=== PATIENT | male | born 1955 | race Caucasian/White ===

== ENCOUNTER 2017-11-02 01:09 | Emergency (ER) | payer MEDICARE ==
[2017-11-02] MEDS ORDERED: ONDANSETRON HCL 4 MG/2 ML VIAL ONE (01:52)
[2017-11-02] MEDS ORDERED: SODIUM CHLORIDE 0.9% 1000ML 1,000 ML IV ONE (01:52)
[2017-11-02] MEDS ORDERED: DICYCLOMINE HCL 20 MG TAB ONE (01:52)
[2017-11-02 02:00] LABS: BASOPHILS % (AUTO) 1.9 % (0.0-5.0); HEMATOCRIT 41.5 % (42-54); MEAN CORPUSCULAR HEMOGLOBIN 30.3 pg (27.0-33.0); MEAN CORPUSCULAR HGB CONC 33.4 g/dL (32.0-36.0); MEAN CORPUSCULAR VOLUME 90.6 fL (79-99); MONOCYTES % (AUTO) 6.1 % (3.0-13.0); NEUTROPHILS % (AUTO) 87.9 % (40.0-77.0); PLATELET COUNT (AUTO) 74 K/uL (130-400); RED BLOOD CELL COUNT(AUTO) 4.58 MIL/uL (4.50-6.20); RED CELL DISTRIBUTION WIDTH 16.1 % (11.0-15.5); WHITE BLOOD COUNT (AUTO) 7.6 K/uL (4.8-10.8)
[2017-11-02 02:10] LABS: CREATININE 1.1 mg/dL (0.5-1.5); POTASSIUM 3.6 mmol/L (3.5-5.1)
[2017-11-02 02:14] LABS: ALBUMIN 3.4 g/dL (3.5-5.0); BILIRUBIN,DIRECT 0.2 mg/dL (0.0-0.3); BILIRUBIN,TOTAL 1.2 mg/dL (0.2-1.0); TOTAL PROTEIN, SERUM 7.4 g/dL (6.0-8.3)
[2017-11-02 02:25] LABS: LYMPHOCYTES % (AUTO) 3.1 % (21.0-51.0)
[2017-11-02] MEDS ORDERED: MORPHINE SULFATE 4 MG/1ML SYG ONE (02:27)
[2017-11-02 02:39] LABS: APPEARANCE,URINE Clear (CLEAR); BILIRUBIN,URINE Negative (NEGATIVE); COLOR,URINE Dark Yellow (YELLOW); GLUCOSE, URINE (UA) Negative (NEGATIVE); KETONES,URINE Negative (NEGATIVE); LEUKOCYTE ESTERASE ,URINE Small (NEGATIVE); NITRATE,URINE Negative (NEGATIVE); OCCULT BLOOD,URINE Moderate (NEGATIVE); PROTEIN,URINE POS 1+ (NEGATIVE)
[2017-11-02 02:54] LABS: BACTERIA,URINE Few /HPF (None Seen); MUCUS,URINE Moderate LPF (None Seen); SQUAMOUS EPITHELIAL CELL,UR 0-2 /LPF (0-2)
[2017-11-02] MEDS ORDERED: KETOROLAC TROMETHAMINE 30MG/ML ONE (03:26)
== END 2017-11-02 03:41 | disposition home or self-care (01) ==
LOC: EDH 01:09
DX: K43.9 Ventral hernia without obstruction or gangrene (principal); R10.13 Epigastric pain; K65.4 Sclerosing mesenteritis; B20 Human immunodeficiency virus [HIV] disease; Z90.49 Acquired absence of other specified parts of digestive tract; Z87.891 Personal history of nicotine dependence; Z98.890 Other specified postprocedural states
CPT/HCPCS: 36415; 74176; 80048; 80076; 81001; 83605; 83690; 84484; 85025; 93005; 96361; 96374; 96375; 99285; J1885; J2270; J2405; J7030

== ENCOUNTER 2018-07-15 18:20 | Emergency (ER) | payer MEDICARE ==
[2018-07-15 19:35] LABS: BASOPHILS % (AUTO) 0.1 % (0.0-5.0); EOSINOPHILS % (AUTO) 0.6 % (0.0-8.0); HEMATOCRIT 47.3 % (42-54); LYMPHOCYTES % (AUTO) 10.4 % (21.0-51.0); MEAN CORPUSCULAR HEMOGLOBIN 31.5 pg (27.0-33.0); MEAN CORPUSCULAR HGB CONC 34.6 g/dL (32.0-36.0); MONOCYTES % (AUTO) 7.6 % (3.0-13.0); NEUTROPHILS % (AUTO) 81.3 % (40.0-77.0); PLATELET COUNT (AUTO) 84 K/uL (130-400); WHITE BLOOD COUNT (AUTO) 7.2 K/uL (4.8-10.8)
[2018-07-15 19:48] LABS: APPEARANCE,URINE Clear (CLEAR); BILIRUBIN,URINE Small (NEGATIVE); COLOR,URINE Orange (YELLOW); GLUCOSE, URINE (UA) Negative (NEGATIVE); KETONES,URINE Negative (NEGATIVE); LEUKOCYTE ESTERASE ,URINE Small (NEGATIVE); NITRATE,URINE Positive (NEGATIVE); OCCULT BLOOD,URINE Small (NEGATIVE); PROTEIN,URINE POS 1+ (NEGATIVE)
[2018-07-15 19:49] LABS: CARBON DIOXIDE 23 mmol/L (21-32); CHLORIDE 105 mmol/L (101-111); CREATININE 1.2 mg/dL (0.5-1.5); GLOMERULAR FILTR. RATE CALC 65 mL/min (>60); GLUCOSE,RANDOM 99 mg/dL (70-105); SODIUM SERUM 138 mmol/L (136-145); UREA NITROGEN, BLOOD 18 mg/dL (7-18)
[2018-07-15 19:52] LABS: INR 1.15 (0.85-1.15)
[2018-07-15] MEDS ORDERED: ACETAMINOPHEN EXTRA STRENGTH 500 MG TABLET ONE (19:54)
[2018-07-15 19:55] LABS: BACTERIA,URINE Few /HPF (None Seen); MUCUS,URINE Moderate LPF (None Seen); SQUAMOUS EPITHELIAL CELL,UR Few /HPF (0-2)
[2018-07-15 20:00] LABS: ALANINE AMINOTRANSFERASE 31 U/L (12-78); ALBUMIN 3.4 g/dL (3.5-5.0); ASPARTATE AMINOTRANSFERASE 30 U/L (10-37); BILIRUBIN,TOTAL 4.5 mg/dL (0.2-1.0); CREATINE KINASE, TOTAL 252 U/L (21-232); MYOGLOBIN 270 ng/mL (10-92); TOTAL PROTEIN, SERUM 7.9 g/dL (6.0-8.3); TROPONIN I < 0.04 ng/mL (0.00-0.06)
[2018-07-15 20:17] LABS: RAPID GROUP A STREP NEGATIVE (NEGATIVE)
[2018-07-15] MEDS ORDERED: DEXAMETHASONE SOD PHOSPHATE 10MG/ML 1ML VIAL ONE (20:51)
[2018-07-15] MEDS ORDERED: DEXAMETHASONE SOD PHOSPHATE 4 MG/ML 5ML VIAL ONE (20:52)
== END 2018-07-15 21:10 | disposition home or self-care (01) ==
LOC: EDH 18:20
DX: J06.9 Acute upper respiratory infection, unspecified (principal); E86.0 Dehydration; Z90.49 Acquired absence of other specified parts of digestive tract; Z21 Asymptomatic human immunodeficiency virus [HIV] infection status
CPT/HCPCS: 36415; 71045; 80053; 81001; 82550; 83605; 83874; 84484; 85025; 85610; 85730; 87040; 87088; 87804 ×2; 87880; 93005; 96372; 99285; J1100 ×2

== ENCOUNTER 2019-06-05 22:41 | Emergency (ER) | payer MEDICARE, OTHER ==
[2019-06-05 23:31] LABS: BILIRUBIN,URINE Small (NEGATIVE); GLUCOSE, URINE (UA) Negative (NEGATIVE); KETONES,URINE Negative (NEGATIVE); LEUKOCYTE ESTERASE ,URINE Moderate (NEGATIVE); NITRATE,URINE Positive (NEGATIVE); OCCULT BLOOD,URINE Small (NEGATIVE); PH,URINE 5.5 (5.0-8.0); PROTEIN,URINE POS 1+ mg/dL (NEGATIVE)
[2019-06-05 23:32] LABS: APPEARANCE,URINE SLIGHTLY CLOUDY (CLEAR); COLOR,URINE Orange (YELLOW)
[2019-06-05 23:37] LABS: BACTERIA,URINE Rare /HPF (None Seen); MUCUS,URINE Moderate LPF (None Seen); SQUAMOUS EPITHELIAL CELL,UR Rare /HPF (0-2)
[2019-06-05 23:39] LABS: AMPHET/METH SCREEN,URINE NEGATIVE (NEGATIVE); BARBITURATE SCREEN, URINE NEGATIVE (NEGATIVE); BENZODIAZEPINES SCREEN,URINE NEGATIVE (NEGATIVE); CANNABINOID SCREEN,URINE NEGATIVE (NEGATIVE); COCAINE SCREEN,URINE NEGATIVE (NEGATIVE); OPIATE SCREEN,URINE NEGATIVE (NEGATIVE); PHENCYCLIDINE SCREEN,URINE NEGATIVE (NEGATIVE)
[2019-06-05] MEDS ORDERED: SODIUM CHLORIDE 0.9% 1000ML 1,000 ML IV ONE (23:49)
[2019-06-05 23:50] LABS: BASOPHILS % (AUTO) 0.2 % (0.0-5.0); EOSINOPHILS % (AUTO) 1.2 % (0.0-8.0); HEMATOCRIT 43.6 % (42-54); LYMPHOCYTES % (AUTO) 14.5 % (21.0-51.0); MEAN CORPUSCULAR HEMOGLOBIN 31.8 pg (27.0-33.0); MEAN CORPUSCULAR HGB CONC 34.9 g/dL (32.0-36.0); MONOCYTES % (AUTO) 12.1 % (3.0-13.0); PLATELET COUNT (AUTO) 97 K/uL (130-400); RED BLOOD CELL COUNT(AUTO) 4.79 MIL/uL (4.50-6.20); RED CELL DISTRIBUTION WIDTH 14.8 % (11.0-15.5); WHITE BLOOD COUNT (AUTO) 7.8 K/uL (4.8-10.8)
[2019-06-06] LABS: CREATININE 1.2 mg/dL (0.5-1.5); POTASSIUM 3.1 mmol/L (3.5-5.1)
[2019-06-06 00:05] LABS: BILIRUBIN,TOTAL 4.7 mg/dL (0.2-1.0); TOTAL PROTEIN, SERUM 6.5 g/dL (6.0-8.3)
[2019-06-06] MEDS ORDERED: CEFTRIAXONE SODIUM 1 GM ONE (01:37)
[2019-06-06] MEDS ORDERED: ACETAMINOPHEN-CODEINE 300/30MG TAB ONE (01:53)
== END 2019-06-06 02:00 | disposition home or self-care (01) ==
LOC: EDH 22:41 → EEVIPCON 22:41 → EDH 06-06 02:00
DX: N10 Acute pyelonephritis (principal); R19.7 Diarrhea, unspecified
CPT/HCPCS: 36415; 74176; 80053; 80305; 81001; 83690; 84484; 85025; 87040 ×2; 87804 ×2; 93005; 96361 ×2; 96374; 99285; J0696; J7030

== ENCOUNTER 2020-07-01 10:29 | Emergency (ER) | payer MEDICARE ==
[2020-07-01 11:06] LABS: BILIRUBIN,URINE MODERATE (NEGATIVE); COLOR,URINE YELLOW (YELLOW); GLUCOSE, URINE (UA) 100 mg/dL (NEGATIVE); KETONES,URINE 5 mg/dL (NEGATIVE); LEUKOCYTE ESTERASE ,URINE MODERATE (NEGATIVE); NITRATE,URINE NEGATIVE (NEGATIVE); OCCULT BLOOD,URINE LARGE (NEGATIVE); PROTEIN,URINE 100 mg/dL (NEGATIVE)
[2020-07-01 11:18] LABS: APPEARANCE,URINE CLOUDY (CLEAR)
[2020-07-01] MEDS ORDERED: LIDOCAINE HCL-MPF 1% 2ML VIAL ONE (11:44)
[2020-07-01] MEDS ORDERED: CEFTRIAXONE SODIUM 1 GM ONE (11:45)
[2020-07-01 11:48] LABS: BACTERIA,URINE Moderate /HPF (None Seen)
== END 2020-07-01 12:00 | disposition home or self-care (01) ==
LOC: EDH 10:29
DX: N39.0 Urinary tract infection, site not specified (principal); Z21 Asymptomatic human immunodeficiency virus [HIV] infection status
CPT/HCPCS: 81001; 87088; 96372; 99283; J0696; J3490

== ENCOUNTER 2021-08-22 14:28 | Emergency (ER) | payer MEDICARE ==
[~2021-08-22] VITALS: Ht 170.2 cm; Wt 90.7 kg
[2021-08-22 15:16] LABS: BASOPHILS % (AUTO) 0.4 % (0.0-5.0); EOSINOPHILS % (AUTO) 1.3 % (0.0-8.0); HEMATOCRIT 42.2 % (42-54); LYMPHOCYTES % (AUTO) 22.6 % (21.0-51.0); MEAN CORPUSCULAR HEMOGLOBIN 33.4 pg (27.0-33.0); MEAN CORPUSCULAR HGB CONC 36.3 g/dL (32.0-36.0); MEAN CORPUSCULAR VOLUME 92.1 fL (79-99); MONOCYTES % (AUTO) 11.4 % (3.0-13.0); NEUTROPHILS % (AUTO) 63.9 % (40.0-77.0); PLATELET COUNT (AUTO) 103 K/uL (130-400); RED BLOOD CELL COUNT(AUTO) 4.58 MIL/uL (4.50-6.20); RED CELL DISTRIBUTION WIDTH 13.4 % (11.0-15.5); WHITE BLOOD COUNT (AUTO) 4.6 K/uL (4.8-10.8)
[2021-08-22 15:23] LABS: POTASSIUM 4.2 mmol/L (3.5-5.1)
[2021-08-22 15:28] LABS: ALBUMIN 3.3 g/dL (3.5-5.0); BILIRUBIN,TOTAL 2.5 mg/dL (0.2-1.0); TOTAL PROTEIN, SERUM 6.9 g/dL (6.0-8.3)
[2021-08-22 15:29] LABS: CRP QUANTITATIVE < 2.00 mg/L (0.00-9.0)
[2021-08-22] MEDS ORDERED: ALBU8.5H8 IH (15:56)
[2021-08-22 16:17] LABS: APPEARANCE,URINE Clear (CLEAR); BILIRUBIN,URINE Small (NEGATIVE); COLOR,URINE Dark Yellow (YELLOW); GLUCOSE, URINE (UA) 500 mg/dL (NEGATIVE); KETONES,URINE Trace mg/dL (NEGATIVE); LEUKOCYTE ESTERASE ,URINE Moderate (NEGATIVE); NITRATE,URINE Negative (NEGATIVE); OCCULT BLOOD,URINE Negative (NEGATIVE); PROTEIN,URINE Trace mg/dL (NEGATIVE)
[2021-08-22 16:20] VITALS: BP 145/82
[2021-08-22 16:37] LABS: BACTERIA,URINE Rare /HPF (None Seen); MUCUS,URINE Rare LPF (None Seen); RBC,URINE 0-1 /HPF (0-1); SQUAMOUS EPITHELIAL CELL,UR Few /HPF (0-2)
== END 2021-08-22 16:21 | disposition home or self-care (01) ==
LOC: EDH 14:28
DX: R06.00 Dyspnea, unspecified (principal); F41.9 Anxiety disorder, unspecified; E66.9 Obesity, unspecified; Z68.31 Body mass index [BMI] 31.0-31.9, adult
CPT/HCPCS: 36415; 71045; 80053; 81001; 83735; 83880; 84484; 85025; 85378; 86140; 87088; 93005

== ENCOUNTER 2021-09-01 21:42 | Emergency (ER) | payer MEDICARE ==
[~2021-09-01] VITALS: Ht 172.7 cm; Wt 100.2 kg
[~2021-09-01 21:42] MED LIST: ALBU8.5H8 IH
[2021-09-01 21:57] VITALS: BP 159/85
[2021-09-01 22:10] LABS: APPEARANCE,URINE Clear (CLEAR); BILIRUBIN,URINE Negative (NEGATIVE); COLOR,URINE Dark Yellow (YELLOW); GLUCOSE, URINE (UA) Negative (NEGATIVE); KETONES,URINE Negative (NEGATIVE); LEUKOCYTE ESTERASE ,URINE Moderate (NEGATIVE); NITRATE,URINE Negative (NEGATIVE); OCCULT BLOOD,URINE Negative (NEGATIVE); PROTEIN,URINE POS 1+ mg/dL (NEGATIVE)
[2021-09-01] MEDS ORDERED: LIDOCAINE HCL-MPF 1% 2ML VIAL ONE (22:14)
[2021-09-01] MEDS ORDERED: CEFTRIAXONE 1G VIAL ONE (22:14)
[2021-09-01 22:23] LABS: RBC,URINE 0-1 /HPF (0-1); WBC,URINE 26-50 /HPF (0-1)
[2021-09-01 22:24] LABS: BACTERIA,URINE Few /HPF (None Seen)
[2021-09-01] MEDS ORDERED: CEFTRIAXONE 1G VIAL IM ONE (22:30)
[2021-09-01] MEDS ORDERED: CEPH500B PO (22:38)
[2021-09-01] MEDS ORDERED: ONDA4TAB10 PO (22:38)
== END 2021-09-01 22:43 | disposition home or self-care (01) ==
LOC: EDH 21:42
DX: N39.0 Urinary tract infection, site not specified (principal); I10 Essential (primary) hypertension; E66.9 Obesity, unspecified; Z79.899 Other long term (current) drug therapy; Z68.33 Body mass index [BMI] 33.0-33.9, adult
CPT/HCPCS: 71045; 81001; 87088; 96372; 99284; J0696; J3490

== ENCOUNTER 2021-10-05 13:32 | Emergency (ER) | payer MEDICARE ==
[~2021-10-05] VITALS: Ht 167.6 cm; Wt 86.2 kg
[~2021-10-05 13:32] MED LIST changes: +CEPH500B PO; +ONDA4TAB10 PO
[2021-10-05 13:53] LABS: APPEARANCE,URINE CLOUDY (CLEAR); BILIRUBIN,URINE SMALL (NEGATIVE); COLOR,URINE YELLOW (YELLOW); GLUCOSE, URINE (UA) NEGATIVE (NEGATIVE); KETONES,URINE 5 mg/dL (NEGATIVE); LEUKOCYTE ESTERASE ,URINE SMALL (NEGATIVE); NITRATE,URINE NEGATIVE (NEGATIVE); OCCULT BLOOD,URINE SMALL (NEGATIVE); PROTEIN,URINE 30 mg/dL (NEGATIVE); UROBILINOGEN,URINE >=8.0 mg/dL (0.2-1.0)
[2021-10-05 13:54] VITALS: BP 122/56
[2021-10-05] MEDS ORDERED: 0.9%NACL 1000ML 1,000 ML IV ONE (14:00)
[2021-10-05 14:09] LABS: BACTERIA,URINE Few /HPF (None Seen); MUCUS,URINE Few LPF (None Seen); SQUAMOUS EPITHELIAL CELL,UR Few /HPF (0-2); WBC,URINE >100 /HPF (0-1)
[2021-10-05 14:19] LABS: BASOPHILS % (AUTO) 0.3 % (0.0-5.0); EOSINOPHILS % (AUTO) 2.2 % (0.0-8.0); LYMPHOCYTES % (AUTO) 18.1 % (21.0-51.0); MEAN CORPUSCULAR HGB CONC 35.2 g/dL (32.0-36.0); MEAN CORPUSCULAR VOLUME 93.8 fL (79-99); MONOCYTES % (AUTO) 18.3 % (3.0-13.0); NEUTROPHILS % (AUTO) 60.8 % (40.0-77.0); PLATELET COUNT (AUTO) 108 K/uL (130-400); RED BLOOD CELL COUNT(AUTO) 4.48 MIL/uL (4.50-6.20); RED CELL DISTRIBUTION WIDTH 13.8 % (11.0-15.5); WHITE BLOOD COUNT (AUTO) 7.3 K/uL (4.8-10.8)
[2021-10-05] MEDS ORDERED: CEFTRIAXONE 1G VIAL IVP ONE (14:30)
[2021-10-05 14:32] LABS: CREATININE 1.2 mg/dL (0.5-1.5)
[2021-10-05 14:37] LABS: ALBUMIN 3.1 g/dL (3.5-5.0); BILIRUBIN,TOTAL 2.2 mg/dL (0.2-1.0); CRP QUANTITATIVE 34.3 mg/L (0.00-9.0); TOTAL PROTEIN, SERUM 6.9 g/dL (6.0-8.3)
[2021-10-05] MEDS ORDERED: CEPH500B PO (15:06)
[2021-10-05] MEDS ORDERED: ALBU8.5H8 IH (15:06)
[2021-10-05] MEDS ORDERED: ACET-2247 PO (15:06)
[2021-10-05] MEDS ORDERED: ACETAMINOPHEN 500 MG TABLET PO ONE (15:30)
== END 2021-10-05 15:56 | disposition home or self-care (01) ==
LOC: EDH 13:32
DX: N39.0 Urinary tract infection, site not specified (principal); K76.6 Portal hypertension; K74.60 Unspecified cirrhosis of liver; I10 Essential (primary) hypertension; Z79.899 Other long term (current) drug therapy
CPT/HCPCS: 36415; 74176; 80053; 81001; 85025; 86140; 87077; 87088; 87186; 96361 ×2; 96374; 99284; J0696; J7030

== ENCOUNTER 2022-02-14 16:14 | Emergency (ER) | payer MEDICARE, OTHER ==
[~2022-02-14] VITALS: Ht 170.2 cm; Wt 90.7 kg
[~2022-02-14 16:14] MED LIST changes: +ACET-2247 PO
[2022-02-14 17:03] LABS: BASOPHILS % (AUTO) 0.2 % (0.0-5.0); EOSINOPHILS % (AUTO) 1.7 % (0.0-8.0); HEMATOCRIT 41.8 % (42-54); LYMPHOCYTES % (AUTO) 27.8 % (21.0-51.0); MEAN CORPUSCULAR HEMOGLOBIN 33.8 pg (27.0-33.0); MEAN CORPUSCULAR HGB CONC 37.1 g/dL (32.0-36.0); MEAN CORPUSCULAR VOLUME 91.1 fL (79-99); MONOCYTES % (AUTO) 11.4 % (3.0-13.0); NEUTROPHILS % (AUTO) 58.7 % (40.0-77.0); PLATELET COUNT (AUTO) 97 K/uL (130-400); RED BLOOD CELL COUNT(AUTO) 4.59 MIL/uL (4.50-6.20); RED CELL DISTRIBUTION WIDTH 13.7 % (11.0-15.5); WHITE BLOOD COUNT (AUTO) 5.9 K/uL (4.8-10.8)
[2022-02-14 17:20] LABS: CREATININE 1.1 mg/dL (0.5-1.5)
[2022-02-14 17:24] LABS: APPEARANCE,URINE CLEAR (CLEAR); BILIRUBIN,URINE NEGATIVE (NEGATIVE); COLOR,URINE YELLOW (YELLOW); GLUCOSE, URINE (UA) NEGATIVE (NEGATIVE); KETONES,URINE NEGATIVE (NEGATIVE); LEUKOCYTE ESTERASE ,URINE NEGATIVE (NEGATIVE); NITRATE,URINE NEGATIVE (NEGATIVE); OCCULT BLOOD,URINE NEGATIVE (NEGATIVE); PROTEIN,URINE TRACE mg/dL (NEGATIVE)
[2022-02-14 17:25] LABS: ALBUMIN 3.2 g/dL (3.5-5.0); BILIRUBIN,TOTAL 1.9 mg/dL (0.2-1.0); TOTAL PROTEIN, SERUM 6.8 g/dL (6.0-8.3)
[2022-02-14 17:35] LABS: BACTERIA,URINE Few /HPF (None Seen); MUCUS,URINE Few LPF (None Seen); SQUAMOUS EPITHELIAL CELL,UR Few /HPF (0-2)
[2022-02-14] MEDS ORDERED: ACETAMINOPHEN WITH CODEINE 1 TAB TAB ONE (20:05)
[2022-02-14] MEDS ORDERED: CEPHALEXIN 500 MG CAPSULE ONE (20:05)
[2022-02-14] MEDS ORDERED: ACET-2079 PO (20:09)
[2022-02-14] MEDS ORDERED: CEPH500B PO (20:09)
[2022-02-14 20:10] VITALS: BP 150/80
[2022-02-14] MEDS ORDERED: ACETAMINOPHEN WITH CODEINE 1 TAB TAB PO ONE (20:30)
[2022-02-14] MEDS ORDERED: CEPHALEXIN 500 MG CAPSULE PO ONE (20:30)
== END 2022-02-14 20:15 | disposition home or self-care (01) ==
LOC: EDH 16:14
DX: N39.0 Urinary tract infection, site not specified (principal); Z79.899 Other long term (current) drug therapy; Z90.49 Acquired absence of other specified parts of digestive tract; Z98.890 Other specified postprocedural states
CPT/HCPCS: 36415; 80053; 81001; 85025; 87088; 87804

== ENCOUNTER 2024-09-09 20:00 | Emergency (ER) | payer MEDICARE, OTHER ==
[~2024-09-09] VITALS: Ht 175.3 cm; Wt 90.7 kg
[~2024-09-09 20:00] MED LIST changes: +ACET-2079 PO; +CYAN250010 PO; +DOLU1TAB2 PO; +ONDA-243 PO; -ONDA4TAB10 PO; +TAMS-1 PO
--- NOTE | 2024-09-09 20:05 | NUR ---
UA CUP PROVIDED
--- NOTE | 2024-09-09 20:19 | ERN ---
ED Note History of Present Illness Stated Complaint: HEADACHE, UNABLE TO SLEEP Chief Complaint: Headache Time Seen by MD: 20:02 Time Seen by Midlevel: 20:02 Dictation: The patient is a 69-year-old male with a history of HIV who presents to the emergency department with complaints of frontal headache onset 2:00 p.m.. Patient denies any falls or head trauma, denies nausea or vomiting, dizziness, use of blood thinners, visual disturbances, unilateral weakness, chest pain or shortness of breath. Patient reports he has been trying to sleep but he is unable to sleep due to the headache. Did not take any ebbi-fil-inhhbrl treatment. Patient reports he has had this headache before and taking Advil with relief. Unable to recall us headache. Allergies: Coded Allergies: No Known Drug Allergies (Unverified Allergy, Unknown, 06/06/19) Home Meds Active Scripts Cephalexin Monohydrate (Keflex) 500 Mg Cap, 500 MG PO BID for 5 Days, #10 CAP Prov:CLARISA EDGAR MD 02/14/22 Acetaminophen with Codeine (Acetaminophen-Cod #3 Tablet) 1 Each Tablet, 1 EACH PO QID, #15 TAB Prov:CLARISA EDGAR MD 02/14/22 Albuterol Sulfate (Proair Hfa) 8.5 Gm Hfa.aer.ad, 2 PUFF IH QIDP, #1 INHALER Prov:CHUY LAGOS 10/05/21 Acetaminophen (Tylenol) 325 Mg Tablet, 650 MG PO Q4HPRN, #50 TAB Prov:CHUY LAGOS 10/05/21 Cephalexin Monohydrate (Keflex) 500 Mg Cap, 500 MG PO TID for 7 Days, #21 CAP Prov:CHUY LAGOS 10/05/21 Ondansetron (Ondansetron Odt) 4 Mg Tab.rapdis, 4 MG PO TID, #21 TAB Prov:CHUY LAGOS 09/01/21 Cephalexin Monohydrate (Keflex) 500 Mg Cap, 500 MG PO TID, #21 CAP Prov:CHUY LAGOS 09/01/21 Albuterol Sulfate (Proair Hfa) 8.5 Gm Hfa.aer.ad, 2 PUFF IH QIDP, #1 INHALER Prov:CHUY LAGOS 08/22/21 Reported Medications Cyanocobalamin (Vitamin B-12) (Vitamin B12) 2,500 Mcg Tablet, 100 MCG PO DAILY, TAB 09/19/22 Tamsulosin HCl (Flomax) 0.4 Mg Cap.er.24h, 0.4 MG PO DAILY, CAPSULE. 09/19/22 Dolutegravir Sodium/Lamivudine (Dovato 50-300 mg Tablet) 1 Each Tablet, 1 EACH PO DAILY, TAB 09/19/22 Past Medical History Past Medical History: Hypertension Additional Past Medical Hx: HIV, obesity Surgical History: Other Surgical History Other: RT HIP REPLACEMENT Family History: Negative Social History: Negative, Lives with family RN Note Reviewed/Agreed w/PFSH: Yes Review of System Dictation Constitutional: Negative for fever,chills, and weight loss Eyes: Negative for injury, pain,redness, and discharge ENT: Negative for injury,pain or swelling Cardiovascular: Negative for chest pain, palpitations, and edema Respiratory: Negative for shortness of breath, cough, and wheezing, Abdomen/GI: Negative for abdominal pain, nausea, vomiting, diarrhea, and constipation Back: Negative for injury and pain : Negative for injury, bleeding and discharge MS/Extremity: Negative for injury and deformity Skin: Negative for rash, and discoloration Neuro: Negative for weakness, numbness, tingling, and seizure . Positive for headache Psych: Negative for suicide ideation, homicidal ideation, and hallucinations Initial Vital Sign VS Vital Signs Date Time Temp Pulse Resp B/P (MAP) Pulse Ox O2 Delivery O2 Flow Rate FiO2 09/09/24 20:01 98.1 82 16 150/67 97 Room Air 09/09/24 20:39 0 21 Physical Exam Dictation Vital Signs reviewed General Appearance: Alert, oriented x 3, no acute distress, well developed, nourished. Head and Face: non-traumatic. Eyes: PERRL, pink conjunctivas, eyelid no trauma, anterior chamber with arcus senilis. Ears: Pinnas intact and no signs of trauma or erythema ear canals clear and no discharge TM no erythema Nose: No discharge, no bleeding. Oropharynx: Mouth normal, tongue pink. pharynx clear,no erythema, tonsils no exudates, no abscesses noted, mucous membrane moist Neck: Supple, non-tender, no thyromegaly, no masses, no JVD, no bruits Breast:Deferred Chest:No tenderness, no crepitus, no paradoxical movement, no retractions Lungs:Clear, well-ventilated, symmetric, no rales, no wheezing, no rhonchi, no stridor, good breath sounds bilaterally Heart: Regular rate, regular rhythm, no murmur, no gallops Vascular: no peripheral edema, Abdomen: Soft, positive bowel sounds, nondistended, no guarding, nontender, no rebound, no masses no hepatomegaly, no splenomegaly, no Romero's sign, no hernias. Rectal: Deferred Genital: Deferred Neurological: Normal speech, motor function intact, sensory function intact , no facial droop, no slurred speech, upper extremities equal and strength, lower extremities equal and strength Musculoskeletal: Neck nontender, full range of motion, back nontender, full range of motion, Extremities: nontender, full range of motion Skin: Color pink, dry, no turgor, no rash, no lacerations, no abrasions, no contusions. Lymphatic: Deferred Results (Laboratory/Radiology) Laboratory/Radiology Laboratory Tests Test 09/09/24 20:17 White Blood Count 5.5 K/uL (4.8-10.8) Red Blood Count 3.77 MIL/uL (4.50-6.20) L Hemoglobin 13.0 g/dL (14.0-18.0) L Hematocrit 35.1 % (42-54) L Mean Corpuscular Volume 93.1 fL (79-99) Mean Corpuscular Hemoglobin 34.5 pg (27.0-33.0) H Mean Corpuscular Hemoglobin Concent 37.0 g/dL (32.0-36.0) H Red Cell Distribution Width 13.9 % (11.0-15.5) Platelet Count 128 K/uL (130-400) L Mean Platelet Volume 10.5 fL (7.5-10.5) Immature Granulocyte % (Auto) 0.4 % (0-1) Neutrophils (%) (Auto) 50.7 % (40.0-77.0) Lymphocytes (%) (Auto) 36.6 % (21.0-51.0) Monocytes (%) (Auto) 8.6 % (3.0-13.0) Eosinophils (%) (Auto) 3.3 % (0.0-8.0) Basophils (%) (Auto) 0.4 % (0.0-5.0) Neutrophils # (Auto) 2.8 K/uL (1.8-7.7) Lymphocytes # (Auto) 2.0 K/uL (1.0-4.8) Monocytes # (Auto) 0.5 K/uL (0.1-1.0) Eosinophils # (Auto) 0.18 K/uL (0.00-0.70) Basophils # (Auto) 0.02 K/uL (0.00-0.20) Absolute Immature Granulocyte (auto 0.02 K/uL (0-1) Nucleated Red Blood Cells 0.0 % (0.0-0.19) Red Blood Cell Morphology See comments Sodium Level 145 mmol/L (136-145) Potassium Level 4.1 mmol/L (3.5-5.1) Chloride Level 112 mmol/L (101-111) H Carbon Dioxide Level 27 mmol/L (21-32) Blood Urea Nitrogen 24 mg/dL (7-18) H Creatinine 1.2 mg/dL (0.5-1.3) Glomerular Filtration Rate Calc 65 mL/min (>90) Random Glucose 143 mg/dL (70-105) H Total Calcium 9.3 mg/dL (8.5-10.1) Magnesium Level 1.90 mg/dL (1.80-2.40) REASON: headache ORDERING PHYSICIAN: NICHOLAS VAUGHAN PROCEDURE: HEAD WO - CT HEAD/BRAIN W/O CONTRAST CT HEAD/BRAIN W/O CONTRAST CLINICAL HISTORY: headache COMPARISON: None TECHNIQUE: Multiple sequential axial images of the head were obtained from the base of the skull through vertex. CT was performed with one or more of the following dose reduction techniques: automated exposure control, adjustment of the mA and/or kV according to patient size, or use of iterative reconstruction technique FINDINGS: There is moderate atrophy and small vessel disease. The orbital contents, paranasal sinuses and mastoid air cells are within normal limits. The calvarium is intact. IMPRESSION: There are no acute findings. Labs Reviewed?: Yes ED Course ED Course Orders Procedure Category Date Status Time Cbc With Differential LAB 09/09/24 Complete 20:08 Basic Metabolic Panel LAB 09/09/24 Complete 20:08 Magnesium LAB 09/09/24 Complete 20:08 Urinalysis Profile LAB 09/09/24 Logged 20:08 Ct Head/Brain W/O CT 09/09/24 Resulted Contrast 20:11 Acetaminophen 500mg PHA 09/09/24 Complete Tab (Tylenol 500mg T 20:30 0.9%Nacl 1000ml (Ns PHA 09/09/24 In Process 1000ml) 20:30 Metoclopramide 10 PHA 09/09/24 Complete Mg/2 Ml Vial (Reglan 1 20:30 Diphenhydramine Hcl PHA 09/09/24 Complete (Benadryl Inj) 20:30 Current Medications Medications (Trade) Dose Ordered Sig/Roxana Route PRN Reason Start Time Stop Time Status Last Admin Dose Admin Acetaminophen (TYLenol 500MG TAB) 1,000 mg ONCE ONCE PO 09/09/24 20:30 09/09/24 20:31 DC 09/09/24 20:32 Diphenhydramine HCl (BENAdryl INJ) 12.5 mg ONCE ONCE IV 09/09/24 20:30 09/09/24 20:31 DC 09/09/24 20:32 Metoclopramide HCl (regLAN 10MG IV) 10 mg ONCE ONCE IM 09/09/24 20:30 09/09/24 20:31 DC 09/09/24 20:32 Sodium Chloride 1,000 ml @ 125 mls/hr ONCE ONCE IV 09/09/24 20:30 09/10/24 04:29 09/09/24 20:32 Vital Signs Date Time Temp Pulse Resp B/P (MAP) Pulse Ox O2 Delivery O2 Flow Rate FiO2 09/09/24 20:39 98.4 86 18 171/99 98 Room Air* 0 21 09/09/24 20:01 98.1 82 16 150/67 97 Room Air Medical Decision Making MDM The patient is a 69-year-old male with a history of HIV who presents to the emergency department with complaints of frontal headache onset 2:00 p.m.. Patient denies any falls or head trauma, denies nausea or vomiting, dizziness, use of blood thinners, visual disturbances, unilateral weakness, chest pain or shortness of breath. Patient reports he has been trying to sleep but he is unable to sleep due to the headache. Did not take any qtti-jys-masfzve treatment. Patient reports he has had this headache before and taking Advil with relief. Unable to recall last headache. CBC showed no leukocytosis, normocytic anemia, chemistry showed chloride of 112, glucose 143, BUN 24, creatinine 1.2, GFR 65. CT revealed no acute pathology. Patient continues neurologically intact. On reassessment patient reports no longer having any headache. Patient will be discharged to follow up with PCP. Differential diagnosis: Dehydration, tension headache, subarachnoid hemorrhage, electrolyte imbalance Need for hospitalization: Patient does not meet criteria for hospitalization. There are no social concerns with this patient. DX & DISP Disposition: Discharge Departure Impression: Primary Impression: Headache Condition: Stable Additional Instructions: Please follow up with primary doctor in 1-2 days. If symptoms worsen please return to ER. FOLLOW-UP WITH PRIMARY CARE PROVIDER IN 1 TO 2 DAYS. TAKE MEDICATIONS DIRECTED HERE IN THE EMERGENCY ROOM. OKAY TO CONTINUE HOME MEDICATIONS UNLESS OTHERWISE DISCUSSED DURING YOUR VISIT IN THE EMERGENCY ROOM TODAY. RETURN TO YOUR NEAREST EMERGENCY ROOM IF SYMPTOMS WORSEN OR IF THERE IS NO IMPROVEMENT. CALL 911 IF YOU NEED IMMEDIATE ASSISTANCE. TAKE TYLENOL OR MOTRIN [id number] NEEDED AND IF NO CONTRAINDICATIONS ARE PRESENT. INCREASE ORAL HYDRATION. A WOUND CULTURE OR URINE CULTURE WAS ORDERED HERE IN THE EMERGENCY ROOM DEPARTMENT PLEASE FOLLOW-UP WITH PRIMARY CARE PROVIDER AND ADVISE THEM TO GET REPEAT PORTS FROM OUR FACILITY. IF YOU HAD ANY ODALYS WRAP/SPLINTS THAT WERE APPLIED HERE, PLEASE DO NOT REMOVE THEM UNTIL YOU SEE YOUR PRIMARY CARE OR SPECIALTY. Referrals: SELF,REFERRAL (PCP) Time of Disposition: 21:51 I have reviewed the case, and I agree with, Diagnosis and Plan NICHOLAS VAUGHAN [facility] Sep 09, 2024 20:19
[2024-09-09 20:27] LABS: BASOPHILS # (AUTO) 0.02 K/uL (0.00-0.20); BASOPHILS % (AUTO) 0.4 % (0.0-5.0); EOSINOPHILS # (AUTO) 0.18 K/uL (0.00-0.70); EOSINOPHILS % (AUTO) 3.3 % (0.0-8.0); HEMATOCRIT 35.1 % (42-54); IMMATURE GRANULOCYTE ABSOLUTE 0.02 K/uL (0-1); LYMPHOCYTES % (AUTO) 36.6 % (21.0-51.0); MEAN CORPUSCULAR HEMOGLOBIN 34.5 pg (27.0-33.0); MEAN CORPUSCULAR VOLUME 93.1 fL (79-99); MONOCYTES # (AUTO) 0.5 K/uL (0.1-1.0); MONOCYTES % (AUTO) 8.6 % (3.0-13.0); NEUTROPHILS # (AUTO) 2.8 K/uL (1.8-7.7); NEUTROPHILS % (AUTO) 50.7 % (40.0-77.0); PLATELET COUNT (AUTO) 128 K/uL (130-400); RED BLOOD CELL COUNT(AUTO) 3.77 MIL/uL (4.50-6.20); RED CELL DISTRIBUTION WIDTH 13.9 % (11.0-15.5); WHITE BLOOD COUNT (AUTO) 5.5 K/uL (4.8-10.8)
[2024-09-09] MEDS: acetaMINOPHEN 500 MG TABLET PO ONE (20:32)
[2024-09-09] MEDS: DiphenhydrAMINE HCL 50 MG/ML VIAL IV ONE (20:32)
[2024-09-09] MEDS: 0.9%NACL 1000ML 1,000 ML IV ONE (20:32)
[2024-09-09] MEDS: metoCLOPRAmide 10 MG/2 ML VIAL IM ONE (20:32)
[2024-09-09 20:59] LABS: CREATININE 1.2 mg/dL (0.5-1.3); MAGNESIUM 1.9 mg/dL (1.80-2.40); POTASSIUM 4.1 mmol/L (3.5-5.1)
--- NOTE | 2024-09-09 21:20 | HMCIMG ---
CT HEAD/BRAIN W/O CONTRAST CLINICAL HISTORY: headache COMPARISON: None TECHNIQUE: Multiple sequential axial images of the head were obtained from the base of the skull through vertex. CT was performed with one or more of the following dose reduction techniques: automated exposure control, adjustment of the mA and/or kV according to patient size, or use of iterative reconstruction technique FINDINGS: There is moderate atrophy and small vessel disease. The orbital contents, paranasal sinuses and mastoid air cells are within normal limits. The calvarium is intact. IMPRESSION: There are no acute findings.
[2024-09-09 21:57] VITALS: BP 156/86; PULSE 81; RESP 20; TEMP 98.1; O2SAT 99
== END 2024-09-09 21:58 | disposition home or self-care (01) ==
LOC: EDH 20:00
DX: R51.9 Headache, unspecified (principal); I10 Essential (primary) hypertension; E66.9 Obesity, unspecified; Z79.624 Long term (current) use of inhibitors of nucleotide synthesis; Z96.641 Presence of right artificial hip joint; Z68.29 Body mass index [BMI] 29.0-29.9, adult
CPT/HCPCS: 99285; 96374; 70450; 96361; 83735; 80048; 85025; 36415; 96372; J1200; J7030; J2765

== ENCOUNTER 2025-02-18 05:38 | Emergency (ER) | payer MEDICARE, OTHER ==
[~2025-02-18] VITALS: Ht 170.2 cm; Wt 90.7 kg
[~2025-02-18 05:38] MED LIST changes: -TAMS-1 PO; +TAMS-55 PO
--- NOTE | 2025-02-18 05:54 | ERN ---
ED Note History of Present Illness Stated Complaint: DONT FEEL GOOD Chief Complaint: Other Problems Time Seen by MD: 07:42 Dictation: Allergies: Coded Allergies: No Known Drug Allergies (Unverified Allergy, Unknown, 06/06/19) Home Meds Active Scripts Cephalexin Monohydrate (Keflex) 500 Mg Cap, 500 MG PO BID for 5 Days, #10 CAP Prov:CLARISA EDGAR MD 02/14/22 Acetaminophen with Codeine (Acetaminophen-Cod #3 Tablet) 1 Each Tablet, 1 EACH PO QID, #15 TAB Prov:CLARISA EDGAR MD 02/14/22 Albuterol Sulfate (Proair Hfa) 8.5 Gm Hfa.aer.ad, 2 PUFF IH QIDP, #1 INHALER Prov:CHUY LAGOS 10/05/21 Acetaminophen (Tylenol) 325 Mg Tablet, 650 MG PO Q4HPRN, #50 TAB Prov:CHUY LAGOS 10/05/21 Cephalexin Monohydrate (Keflex) 500 Mg Cap, 500 MG PO TID for 7 Days, #21 CAP Prov:CHUY LAGOS 10/05/21 Ondansetron (Ondansetron Odt) 4 Mg Tab.rapdis, 4 MG PO TID, #21 TAB Prov:CHUY LAGOS 09/01/21 Cephalexin Monohydrate (Keflex) 500 Mg Cap, 500 MG PO TID, #21 CAP Prov:CHUY LAGOS 09/01/21 Albuterol Sulfate (Proair Hfa) 8.5 Gm Hfa.aer.ad, 2 PUFF IH QIDP, #1 INHALER Prov:CHUY LAGOS 08/22/21 Reported Medications Cyanocobalamin (Vitamin B-12) (Vitamin B12) 2,500 Mcg Tablet, 100 MCG PO DAILY, TAB 09/19/22 Tamsulosin HCl (Flomax) 0.4 Mg Cap.er.24h, 0.4 MG PO DAILY, CAPSULE.DR 09/19/22 Dolutegravir Sodium/Lamivudine (Dovato 50-300 mg Tablet) 1 Each Tablet, 1 EACH PO DAILY, TAB 09/19/22 Past Medical History Dictation 69-year-old male presents for generalized abdominal discomfort and nausea over the last few days. Patient reports for last two or three days she has had decreased oral intake and nausea. He was developed some generalized abdominal discomfort. He also has a headache. Unknown if he has a fever per the patient. No actual vomiting. No diarrhea. Reports that he was feeling unwell last night and was able to sleep which is why came to the ER. Past Medical History: Hypertension Additional Past Medical Hx: HIV, obesity, portal venous hypertension, cirrhosis Surgical History: Other Surgical History Other: RT HIP REPLACEMENT Family History: Negative Social History: Negative, Lives with family RN Note Reviewed/Agreed w/PFSH: Yes Review of System Dictation Constitutional: Negative for fever,chills, and weight loss Eyes: Negative for injury, pain,redness, and discharge ENT: Negative for injury,pain or swelling Cardiovascular: Negative for chest pain, palpitations, and edema Respiratory: Negative for shortness of breath, cough, and wheezing, Abdomen/GI: Negative for abdominal pain, nausea, vomiting, diarrhea, and constipation Back: Negative for injury and pain : Negative for injury, bleeding and discharge MS/Extremity: Negative for injury and deformity Skin: Negative for rash, and discoloration Neuro: Negative for headache, weakness, numbness, tingling, and seizure Psych: Negative for suicide ideation, homicidal ideation, and hallucinations Initial Vital Sign VS Vital Signs Date Time Temp Pulse Resp B/P (MAP) Pulse Ox O2 Delivery O2 Flow Rate FiO2 02/18/25 05:39 96.6 89 20 106/79 99 Room Air 02/18/25 07:32 0 21 Physical Exam Dictation General: awake, alert, NAD Head/Face: Normocephalic, atraumatic Eyes: PERRL, EOMI, vision at baseline ENT: oral cavity clear, TMs clear, no signs of infection Neck: Trachea midline, supple, no nuchal rigidity Cardiovascular: RRR, normal S1/S2, No MRGs, no JVD Respiratory: CTAB, no respiratory distress, No rales or wheezes Abdomen: Soft, non-tender, non-distended, normal bowel sounds, no guarding or rebound. Skin: Warm, dry, normal turgor, no rash MS/Extremity: Pulses equal, no cyanosis, neurovascular intact, FROM Neuro: COAx4, GCS 15, strength 5/5, CN 2-12 intact, normal cerebellar exam, normal gait, Psych: Normal behavior, mood, and affect normal Extremities-trace edema without any palpable cords, Homans sign is negative Results (Laboratory/Radiology) Laboratory/Radiology Laboratory Tests Test 02/18/25 06:23 02/18/25 08:06 02/18/25 08:10 White Blood Count 5.8 K/uL (4.8-10.8) Red Blood Count 4.18 MIL/uL (4.50-6.20) L Hemoglobin 14.0 g/dL (14.0-18.0) Hematocrit 37.8 % (42-54) L Mean Corpuscular Volume 90.4 fL (79-99) Mean Corpuscular Hemoglobin 33.5 pg (27.0-33.0) H Mean Corpuscular Hemoglobin Concent 37.0 g/dL (32.0-36.0) H Red Cell Distribution Width 14.0 % (11.0-15.5) Platelet Count 110 K/uL (130-400) L Mean Platelet Volume 10.4 fL (7.5-10.5) Immature Granulocyte % (Auto) 0.5 % (0-1) Neutrophils (%) (Auto) 62.4 % (40.0-77.0) Lymphocytes (%) (Auto) 28.5 % (21.0-51.0) Monocytes (%) (Auto) 6.7 % (3.0-13.0) Eosinophils (%) (Auto) 1.7 % (0.0-8.0) Basophils (%) (Auto) 0.2 % (0.0-5.0) Neutrophils # (Auto) 3.6 K/uL (1.8-7.7) Lymphocytes # (Auto) 1.7 K/uL (1.0-4.8) Monocytes # (Auto) 0.4 K/uL (0.1-1.0) Eosinophils # (Auto) 0.10 K/uL (0.00-0.70) Basophils # (Auto) 0.01 K/uL (0.00-0.20) Absolute Immature Granulocyte (auto 0.03 K/uL (0-1) Nucleated Red Blood Cells 0.0 % (0.0-0.19) Red Blood Cell Morphology See comments Sodium Level 140 mmol/L (136-145) Potassium Level 4.0 mmol/L (3.5-5.1) Chloride Level 108 mmol/L (101-111) Carbon Dioxide Level 23 mmol/L (21-32) Blood Urea Nitrogen 23 mg/dL (7-18) H Creatinine 1.1 mg/dL (0.5-1.3) Glomerular Filtration Rate Calc 72 mL/min (>90) Random Glucose 111 mg/dL (70-105) H Total Calcium 8.6 mg/dL (8.5-10.1) Total Bilirubin 1.4 mg/dL (0.2-1.0) H Direct Bilirubin 0.3 mg/dL (0.0-0.3) Aspartate Amino Transf (AST/SGOT) 33 U/L (10-37) Alanine Aminotransferase (ALT/SGPT) 31 U/L (12-78) Alkaline Phosphatase 67 U/L (50-136) Ammonia umol/L (11-32) Total Creatine Kinase 152 U/L (21-232) # Troponin I High Sensitivity 12 ng/L (4-75) Total Protein 6.6 g/dL (6.0-8.3) Albumin 3.2 g/dL (3.5-5.0) L Lipase 53 U/L (16-77) Serum Alcohol < 3 mg/dL (0-10) Urine Color DARK-YELLOW (YELLOW) Urine Appearance CLOUDY (CLEAR) H Urine pH 6.5 (5.0-8.0) Urine Specific [place] 1.030 (1.001-1.031) Urine Protein 30 mg/dL (NEGATIVE) H Urine Glucose (UA) NEGATIVE mg/dL (NEGATIVE) Urine Ketones 5 mg/dL (NEGATIVE) H Urine Occult Blood NEGATIVE (NEGATIVE) Urine Nitrate NEGATIVE (NEGATIVE) Urine Bilirubin NEGATIVE mg/dL (NEGATIVE) Urine Urobilinogen >=8.0 mg/dL (0.2-1.0) H Urine Leukocyte Esterase 250 [place]ham/uL (NEGATIVE) H Urine RBC 11-25 /HPF (0-1) H Urine WBC 26-50 /HPF (0-1) H Urine Squamous Epithelial Cells RARE /HPF (0-2) Urine Bacteria None /HPF (None Seen) Influenza Type A Antigen Negative For Type A Influenza Type B Antigen Negative For Type B SARS-CoV-2 Antigen (Rapid) PRESUMPTIVE NEGATIVE Labs Reviewed?: Yes ED Course ED Course Orders Procedure Category Date Status Time Alcohol, Blood LAB 02/18/25 Complete 06:08 Ammonia LAB 02/18/25 Complete 06:08 Cbc With Differential LAB 02/18/25 Complete 06:08 Urinalysis Profile LAB 02/18/25 Complete 06:08 Comprehensive LAB 02/18/25 Complete Metabolic Panel 06:08 Creatine Kinase, Total LAB 02/18/25 Complete 06:08 Chest 1vw RAD 02/18/25 Resulted 06:08 Cortisol Am LAB 02/18/25 In Process 06:08 Lactated Ringers PHA 02/18/25 Complete 1000ml (Lactated 07:30 Lipase LAB 02/18/25 Complete 07:32 Hepatic Function Panel LAB 02/18/25 Complete 07:32 Troponin I High LAB 02/18/25 Complete Sensitivity 07:32 12 Lead Ekg Tracing- EKG 02/18/25 Logged Technical 07:32 Ct Abdomen/Pelvis CT 02/18/25 Resulted W/Contrast 07:41 Morphine 4mg Syg PHA 02/18/25 Complete (Morphine 4mg Syg) 08:00 Covid19 (Sars Antigen LAB 02/18/25 Complete Rapid) 07:41 Influenza Type A & B, LAB 02/18/25 Complete Rapid 07:41 Ondansetron 4mg Inj PHA 02/18/25 Complete (Zofran 4mg Inj) 08:00 Iohexol (Omnipaque) PHA 02/18/25 Complete 07:57 Culture Urine GLORIA 02/18/25 Logged 08:59 Lactulose 20 Gm/30 Ml PHA 02/18/25 In Process Udcup (Constulose 09:30 Lactulose 20 Gm/30 Ml PHA 02/18/25 Complete Udcup (Constulose 09:18 Current Medications Medications (Trade) Dose Ordered Sig/Roxana Route PRN Reason Start Time Stop Time Status Last Admin Dose Admin Iohexol (Omnipaque) 75 ml STK-MED ONCE IV 02/18/25 07:57 02/18/25 07:57 DC Lactated Ringer's 1,000 ml @ 0 mls/hr ONCE ONCE IV 02/18/25 07:30 02/18/25 07:31 DC 02/18/25 07:27 Lactulose (Constulose 20gm/ 30ml Udcup) 20 gm ONCE ONCE PO 02/18/25 09:30 02/18/25 09:31 02/18/25 09:23 Lactulose (Constulose 20gm/ 30ml Udcup) 20 gm STK-MED ONCE .ROUTE 02/18/25 09:18 02/18/25 09:19 DC Morphine Sulfate (morPHINE 4MG SYG) 4 mg ONCE ONCE IVP 02/18/25 08:00 02/18/25 08:01 DC 02/18/25 08:39 Ondansetron HCl (zoFRAN 4MG INJ) 4 mg ONCE ONCE IVP 02/18/25 08:00 02/18/25 08:01 DC 02/18/25 08:39 Vital Signs Date Time Temp Pulse Resp B/P (MAP) Pulse Ox O2 Delivery O2 Flow Rate FiO2 02/18/25 07:32 98.1 64 14 165/83 100 Room Air* 0 21 02/18/25 05:39 96.6 89 20 106/79 99 Room Air We will perform diagnostic labs, advanced imaging and administer medications according to the patient's complaint. Once the results are available, will review and personally interpreted the labs to rule out any acute life- threatening emergency the trach require immediate intervention and treatment. I will then re-evaluate the patient after treatment and diagnostic exams have return to determine whether the patient requires any further testing, can safely be discharged home or need further admission to hospital for additional treatment and evaluation. Medical Decision Making MDM DR IRIZARRY. I took over care of this patient at 0700. CC: Nausea, generally feeling unwell, generalized abdominal discomfort, difficulty sleeping historian: Patient comorbidities: HIV, obesity, on a diuretic for another reason, possible history of liver disease but patient was unsure Limitations by social determinants of health: None Differential diagnosis: Surgical pathology of the abdomen, metabolic disorder, liver disorder, infection, other. Vital signs: Stable, remained stable here in the ER labs (independently ordered and interpreted by me ): No leukocytosis the white blood cell count 5.8 K 62% neutrophils no bands. No neutropenia. No anemia. Platelets mildly low 110. Chemistry panel shows stable electrolytes mildly elevated BUN to creatinine ratio consistent with dehydration. T bili is mildly elevated 1.4 the rest of the liver enzymes are stable. CK normal. Troponin normal. Albumin mildly low. Lipase normal. Ammonia elevated 140. Alcohol level normal. Flu SARS negative. Urinalysis does show some leuk esterase urobilinogen. CXR: Possible left perihilar infiltrate, the patient was lung sounds are clear this does not fit the clinical picture, I suspect it is probably atelectasis based on the patient's positioning and abdominal anatomy. CT abdomen and pelvis with contrast (independently interpreted by me): No obvious surgical pathology or free air. Per radiology read there is a small liver splenomegaly splenorenal shunt without ascites. Patient appears to have chronic liver disease. Treatment in ED: Zofran, 4 mg IV morphine, 1 L lactated Ringer's. 20 mg oral lactulose. Plan: I recommended that the patient be admitted for the elevated ammonia. He was having sleep disturbances nausea, I am concerned that he may have elevated ammonia levels. I also report that he likely has liver disease based on the clinical picture. The patient reports he thinks this is chronic but he was unsure. He reports some it was not want to stay in the hospital. He was GCS of 15. I repeated it multiple times so we get offer the hospital including a GI consultation and make sure the ammonia clears and that his symptoms improved, the patient reports that he understands this, but he was not want to be in the hospital he wants to go home. I did suggest that I will discharge the patient with lactulose that he should take t.i.d. for the next few days and increase his oral intake, and the patient will need close follow up as an outpatient. He reports that he was sees Dr. Mckeon as an outpatient and he can go with the next few days to his office because he was usually able to see him very often. The patient goes to his primary doctor at least once or twice per month he says. This seems like a reasonable follow up. He lives with somebody at home. He was not altered at all at this time and he was able to answer all questions and he was ambulatory without any symptoms. We will DC with lactulose recommend very close PCP follow up. I told the patient multiple times to immediately return to the emergency department if he has any concerns. DX & DISP Disposition: Discharge Departure Impression: Primary Impression: Hyperammonemia Additional Impressions: Liver disease, Dehydration, UTI (urinary tract infection), Bacteria in urine, Elevated bilirubin, Thrombocytosis Condition: Stable Scripts Lactulose (Lactulose) 10 Gram/15 Ml Solution 30 ML PO TID PRN for tid for 5 Days, #500 ML 0 Refills Prov: NIURKA IRIZARRY DO 02/18/25 Cephalexin (Cephalexin) 500 Mg Capsule 1 CAP PO BID for 5 Days, #10 CAP 0 Refills Prov: NIURKA IRIZARRY DO 02/18/25 Additional Instructions: Your symptoms are consistent with elevated ammonia levels, which is likely due to liver disease. Your vital signs have been stable here in the ER. The CT scan of your abdomen and pelvis shows signs of liver disease but there are no acute abnormalities. Your lab work (CBC, BMP, liver function test, urinalysis, lipase, CK, albumin, ammonia) shows signs of liver disease and there may be some mild urinary infection. There was also some dehydration. The ammonia is elevated, which may be causing your symptoms. Otherwise there are no life-threatening changes. You received IV fluids, pain control, and a dose of lactulose here in the ER. As we discussed, I have prescribed lactulose. This medication will make you stool, and we will help clear the ammonia. I recommend that you take this at least 3 times per day for the next 3-5 days. As we discussed, you need to follow up with Dr. Mckeon this week for re-evaluation. I have also prescribed antibiotics. Take as prescribed. You can take over the counter ibuprofen (800mg) as needed for pain. As we discussed, many people with the your condition are admitted to the hospital to ensure resolution. Please immediately return to the emergency department if you have any concerning symptoms. Referrals: CROW LAMBERT DO (PCP) RADHA SALMON MD Feb 18, 2025 05:54 NIURKA IRIZARRY DO Feb 18, 2025 07:44
[2025-02-18 06:45] LABS: BASOPHILS # (AUTO) 0.01 K/uL (0.00-0.20); BASOPHILS % (AUTO) 0.2 % (0.0-5.0); EOSINOPHILS % (AUTO) 1.7 % (0.0-8.0); HEMATOCRIT 37.8 % (42-54); IMMATURE GRANULOCYTE ABSOLUTE 0.03 K/uL (0-1); LYMPHOCYTES # (AUTO) 1.7 K/uL (1.0-4.8); LYMPHOCYTES % (AUTO) 28.5 % (21.0-51.0); MEAN CORPUSCULAR HEMOGLOBIN 33.5 pg (27.0-33.0); MEAN CORPUSCULAR VOLUME 90.4 fL (79-99); MONOCYTES # (AUTO) 0.4 K/uL (0.1-1.0); MONOCYTES % (AUTO) 6.7 % (3.0-13.0); NEUTROPHILS # (AUTO) 3.6 K/uL (1.8-7.7); NEUTROPHILS % (AUTO) 62.4 % (40.0-77.0); PLATELET COUNT (AUTO) 110 K/uL (130-400); RED BLOOD CELL COUNT(AUTO) 4.18 MIL/uL (4.50-6.20); WHITE BLOOD COUNT (AUTO) 5.8 K/uL (4.8-10.8)
[2025-02-18 06:53] LABS: CARBON DIOXIDE 23 mmol/L (21-32); CHLORIDE 108 mmol/L (101-111); CREATININE 1.1 mg/dL (0.5-1.3); GLOMERULAR FILTR. RATE CALC 72 mL/min (>90); GLUCOSE,RANDOM 111 mg/dL (70-105); SODIUM SERUM 140 mmol/L (136-145); UREA NITROGEN, BLOOD 23 mg/dL (7-18)
[2025-02-18 06:56] LABS: ALANINE AMINOTRANSFERASE 30 U/L (12-78); ALBUMIN 3.2 g/dL (3.5-5.0); ASPARTATE AMINOTRANSFERASE 31 U/L (10-37); BILIRUBIN,TOTAL 1.3 mg/dL (0.2-1.0); CREATINE KINASE, TOTAL 152 U/L (21-232); TOTAL PROTEIN, SERUM 6.5 g/dL (6.0-8.3)
[2025-02-18 06:59] LABS: ALCOHOL, BLOOD < 3 mg/dL (0-10)
[2025-02-18] MEDS: LACTATED RINGERS 1000ML 1,000 ML IV ONE (07:27)
--- NOTE | 2025-02-18 07:35 | NUR ---
PATIENT MADE AWARE OF URINE ORDER SAMPLE
[2025-02-18] MEDS ORDERED: IOHEXOL-350 75 ML VIAL IV ONE (07:57)
--- NOTE | 2025-02-18 08:05 | NUR ---
PENDING CONSENT FOR CT EXAM.
--- NOTE | 2025-02-18 08:14 | HMCIMG ---
PORTABLE CHEST RADIOGRAPH INDICATION: generalized weakness COMPARISON: 09/20/2022 FINDINGS: Heart size is normal. The pulmonary vascularity and right hilum appear normal. Linear left perihilar/infrahilar opacities. Left hemidiaphragm is slightly elevated. No significant pleural effusion noted. No pneumothorax detected. IMPRESSION: Left perihilar/infrahilar atelectasis favored over evolving pneumonia. Follow-up chest radiograph is advised in order to ensure resolution.
[2025-02-18 08:31] LABS: COVID19 (SARS ANTIGEN RAPID) PRESUMPTIVE NEGATIVE (NEGATIVE); INFLUENZA TYPE A Negative For Type A (NEGATIVE); INFLUENZA TYPE B Negative For Type B (NEGATIVE)
[2025-02-18 08:33] LABS: ALBUMIN 3.2 g/dL (3.5-5.0); BILIRUBIN,DIRECT 0.3 mg/dL (0.0-0.3); BILIRUBIN,TOTAL 1.4 mg/dL (0.2-1.0); TOTAL PROTEIN, SERUM 6.6 g/dL (6.0-8.3)
[2025-02-18] MEDS: morPHINE 4 MG SYG IVP ONE (08:39)
[2025-02-18] MEDS: ondanSETRON 4MG INJ IVP ONE (08:39)
[2025-02-18 08:47] LABS: APPEARANCE,URINE CLOUDY (CLEAR); BILIRUBIN,URINE NEGATIVE (NEGATIVE); COLOR,URINE DARK-YELLOW (YELLOW); GLUCOSE, URINE (UA) NEGATIVE (NEGATIVE); KETONES,URINE 5 mg/dL (NEGATIVE); LEUKOCYTE ESTERASE ,URINE 250 Leu/uL (NEGATIVE); NITRATE,URINE NEGATIVE (NEGATIVE); OCCULT BLOOD,URINE NEGATIVE (NEGATIVE); PH,URINE 6.5 (5.0-8.0); PROTEIN,URINE 30 mg/dL (NEGATIVE); UROBILINOGEN,URINE >=8.0 mg/dL (0.2-1.0)
--- NOTE | 2025-02-18 08:50 | HMCIMG ---
CT ABDOMEN WITH CONTRAST. CT PELVIS WITH CONTRAST INDICATION: Abdominal pain and nausea TECHNIQUE: Routine transaxial images using 5 mm slice thickness were obtained after the intravenous infusion of 75 mL of Omnipaque 350 without adverse effects. Oral contrast was not administered. Rectal contrast was not administered. Coronal and sagittal reformatted images acquired for interpretation. CT was performed with one or more of the following dose reduction techniques: Automated exposure control, adjustment of the mA and/or kV according to patient size, or use of iterative reconstruction technique. COMPARISON: 09/17/2022 FINDINGS: ABDOMEN: Heart size is normal. Multiple simple cysts scattered throughout both lungs. Mild distal esophageal wall thickening. The liver is decreased in size and smooth in contour without lesions or biliary duct dilation. Diminutive portal venous system. The spleen is enlarged without lesions. Splenorenal shunt. The gallbladder is absent. The pancreas appears normal without pancreatic duct dilation. The adrenal glands appear normal. Both kidneys appear unremarkable. Cortical nephrograms are symmetric and normal in appearance bilaterally. No evidence for intra-abdominal free air or organized fluid collection. No retrocrural, intraabdominal, or retroperitoneal lymphadenopathy identified. No aortic aneurysmal dilation or dissection identified. PELVIS: Extensive streak artifact from right hip hardware. No evidence for free air or organized pelvic fluid collection. No significant pelvic adenopathy detected. Moderate stool burden. Terminal ileum appears normal. The appendix is not well-visualized. The urinary bladder appears unremarkable. Mild thoracolumbar spondylosis. 1 cm Schmorl's node prolapsing into the superior endplate of T11. IMPRESSION: Mild distal esophagitis. Small liver, diminutive portal venous system, splenomegaly, and splenorenal shunt, without ascites or gastroesophageal varices. Small simple cysts scattered throughout both lungs may represent residual from prior infection, inflammation, or other insult.
[2025-02-18 08:59] LABS: ADD UA MICROSCOPIC YES
[2025-02-18 09:03] LABS: MUCUS,URINE MANY LPF (None Seen); SQUAMOUS EPITHELIAL CELL,UR RARE /HPF (0-2); WBC,URINE 26-50 /HPF (0-1)
[2025-02-18] MEDS: LACTULOSE 20 GM/30 ML UDCUP ONE (09:23)
[2025-02-18] MEDS: LACTULOSE 20 GM/30 ML UDCUP PO ONE (09:23)
[2025-02-18] MEDS ORDERED: LACT10SO85 PO (09:27)
[2025-02-18] MEDS ORDERED: CEPH500C2 PO (09:27)
[2025-02-18 09:34] VITALS: BP 169/73; PULSE 64; RESP 14; TEMP 98.1; O2SAT 99
[2025-02-18 09:44] LABS: AMMONIA 141 umol/L (11-32)
--- NOTE | 2025-02-18 14:27 | EKG ---
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 : 1955 Requested By: NIURKA IRIZARRY Order Number: [id number] Reading MD: Portillo Dixon Measurements Intervals Gates Rate: 77 P: 34 RI: 180 QRS: -3 QRSD: 102 T: 66 QT: 420 QTc: 475 Interpretive Statements Sinus rhythm Supraventricular bigeminy Compared to ECG 09/18/2022 12:03:00 Atrial premature complex(es) now present Atrial flutter no longer present Left-axis deviation no longer present Myocardial infarct finding no longer present T-wave abnormality no longer present Possible ischemia no longer present Electronically Signed On 02-18-2025 17:28:57 CDT by Portillo Dixon Please click the below link to view image of tracing.
== END 2025-02-18 09:39 | disposition home or self-care (01) ==
LOC: EDH 05:38
DX: N39.0 Urinary tract infection, site not specified (principal); E72.20 Disorder of urea cycle metabolism, unspecified; E86.0 Dehydration; K74.60 Unspecified cirrhosis of liver; D75.839 Thrombocytosis, unspecified; E80.7 Disorder of bilirubin metabolism, unspecified; E66.9 Obesity, unspecified; I10 Essential (primary) hypertension; I21.9 Acute myocardial infarction, unspecified; Z20.822 Contact with and (suspected) exposure to COVID-19; Z79.624 Long term (current) use of inhibitors of nucleotide synthesis; Z79.899 Other long term (current) drug therapy; Z90.49 Acquired absence of other specified parts of digestive tract; Z96.641 Presence of right artificial hip joint; Z98.890 Other specified postprocedural states
CPT/HCPCS: 99285; 74177; 96374; 71045; 96361; 96375; 87426; 82550; 84484; 80053; 82140; 83690; 85025; 87086; 87804 ×2; 82533; 81001; 36415; 93005; 80076; J7120; J2405; J2270; Q9967

== ENCOUNTER 2025-09-25 09:56 | Emergency (ER) | payer OTHER ==
[~2025-09-25] VITALS: Ht 170.2 cm; Wt 81.6 kg
--- NOTE | 2025-09-25 10:16 | ERN ---
ED Note History of Present Illness Stated Complaint: COUGH/VOMITING Chief Complaint: Cough Time Seen by MD: 10:03 Dictation: PATIENT IS A 70-YEAR-OLD MALE COMING IN TODAY WITH A COUGH AND NAUSEA VOMITING AND FEELING GENERALIZED BODY WEAKNESS FOR ONE WEEK. NO FEVER NO CHILLS HE HAS NO COMPLAINTS OF PAIN AT THE PRESENT TIME. HE STATES HE WAS RECENTLY DISCHARGED FROM [facility] FOR THE SAME CONCERNS, HAD BEEN ADMITTED TO THE HOSPITAL FOR FIVE DAYS. HE STATES IT WAS DISCHARGED ON AN ANTIBIOTIC AND HE COMPLETED THE ANTIBIOTIC YESTERDAY DOES NOT FEEL ANY BETTER. HE DOES HAVE A HISTORY OF CIRRHOSIS/HIV IN HIS ON ANTIVIRAL MEDICATIONS. HIS PRIMARY CARE DOCTOR IN THE [place] IS DR. HA, HIV SPECIALIST. Allergies: Coded Allergies: No Known Drug Allergies (Unverified Allergy, Unknown, 06/06/19) Home Meds Active Scripts Lactulose (Lactulose) 10 Gram/15 Ml Solution, 30 ML PO TID PRN for tid for 5 Days, #500 ML 0 Refills Prov:NIURKA IRIZARRY DO 02/18/25 Cephalexin (Cephalexin) 500 Mg Capsule, 1 CAP PO BID for 5 Days, #10 CAP 0 Refills Prov:NIURKA IRIZARRY DO 02/18/25 Cephalexin Monohydrate (Keflex) 500 Mg Cap, 500 MG PO BID for 5 Days, #10 CAP Prov:CLARISA EDGAR MD 02/14/22 Acetaminophen with Codeine (Acetaminophen-Cod #3 Tablet) 1 Each Tablet, 1 EACH PO QID, #15 TAB Prov:CLARISA EDGAR MD 02/14/22 Albuterol Sulfate (Proair Hfa) 8.5 Gm Hfa.aer.ad, 2 PUFF IH QIDP, #1 INHALER Prov:CHUY LAGOS 10/05/21 Acetaminophen (Tylenol) 325 Mg Tablet, 650 MG PO Q4HPRN, #50 TAB Prov:CHUY LAGOS 10/05/21 Cephalexin Monohydrate (Keflex) 500 Mg Cap, 500 MG PO TID for 7 Days, #21 CAP Prov:CHUY LAGOS 10/05/21 Ondansetron (Ondansetron Odt) 4 Mg Tab.rapdis, 4 MG PO TID, #21 TAB Prov:CHUY LAGOS 09/01/21 Cephalexin Monohydrate (Keflex) 500 Mg Cap, 500 MG PO TID, #21 CAP Prov:CHUY LAGOS 09/01/21 Albuterol Sulfate (Proair Hfa) 8.5 Gm Hfa.aer.ad, 2 PUFF IH QIDP, #1 INHALER Prov:CHUY LAGOS 08/22/21 Reported Medications Cyanocobalamin (Vitamin B-12) (Vitamin B12) 2,500 Mcg Tablet, 100 MCG PO DAILY, TAB 09/19/22 Tamsulosin HCl (Flomax) 0.4 Mg Cap.er.24h, 0.4 MG PO DAILY, CAPSULE.DR 09/19/22 Dolutegravir Sodium/Lamivudine (Dovato 50-300 mg Tablet) 1 Each Tablet, 1 EACH PO DAILY, TAB 09/19/22 Past Medical History Past Medical History: HIV, Hypertension Additional Past Medical Hx: HIV, obesity, portal venous hypertension, cirrhosis Surgical History: Other Surgical History Other: RT HIP REPLACEMENT Family History: Negative Social History: Negative, Lives with family RN Note Reviewed/Agreed w/PFSH: Yes Review of System Dictation CONSTITUTIONAL: NEGATIVE EXCEPT FOR HPI GB W HEAD/FACE: NEGATIVE EXCEPT FOR HPI EENT: NEGATIVE EXCEPT FOR HPI RESPIRATORY: NEGATIVE EXCEPT FOR HPI COUGH GASTROINTESTINAL/ABDOMINAL: NEGATIVE EXCEPT FOR HPI NAUSEA VOMITING GENITOURINARY: NEGATIVE EXCEPT FOR HPI MUSCULOSKELETAL: NEGATIVE EXCEPT FOR HPI INTEGUMENTARY: NEGATIVE EXCEPT FOR HPI NEUROLOGICAL/PSYCH: NEGATIVE EXCEPT FOR HPI HEMATOLOGIC/LYMPHATIC: NEGATIVE EXCEPT FOR HPI ALL SYSTEMS NEGATIVE, EXCEPT NOTED ABOVE. 13 POINT REVIEW OF SYSTEMS ASSESSED AND ALL NEGATIVE EXCEPT FOR ABOVE. Initial Vital Sign VS Vital Signs Date Time Temp Pulse Resp B/P (MAP) Pulse Ox O2 Delivery O2 Flow Rate FiO2 09/25/25 10:00 51 18 152/60 99 Room Air 0 09/25/25 10:18 98.1 21 Physical Exam Dictation VITAL SIGNS REVIEWED GENERAL APPEARANCE: ALERT, ORIENTED X 3, NO ACUTE DISTRESS, WELL DEVELOPED, NOURISHED. HEAD AND FACE: NON-TRAUMATIC. EYES: PERRL, PINK CONJUNCTIVAS, EYELID NO TRAUMA, ANTERIOR CHAMBER WITH ARCUS SENILIS. EARS: PINNAS INTACT AND NO SIGNS OF TRAUMA OR ERYTHEMA EAR CANALS CLEAR AND NO DISCHARGE TM NO ERYTHEMA NOSE: NO DISCHARGE, NO BLEEDING. OROPHARYNX: MOUTH NORMAL, TONGUE PINK, PHARYNX CLEAR,NO ERYTHEMA, TONSILS NO EXUDATES, NO ABSCESSES NOTED, MUCOUS MEMBRANE MOIST NECK: SUPPLE, NON-TENDER, NO THYROMEGALY, NO MASSES, NO JVD, NO BRUITS BREAST:DEFERRED CHEST:NO TENDERNESS, NO CREPITUS, NO PARADOXICAL MOVEMENT, NO RETRACTIONS LUNGS:CLEAR, WELL-VENTILATED, SYMMETRIC, NO RALES, NO WHEEZING, NO RHONCHI, NO STRIDOR, GOOD BREATH SOUNDS BILATERALLY HEART: REGULAR RATE, REGULAR RHYTHM, NO MURMUR, NO GALLOPS VASCULAR: NO PERIPHERAL EDEMA, ABDOMEN: SOFT, POSITIVE BOWEL SOUNDS, NONDISTENDED, NO GUARDING, NONTENDER, NO REBOUND, NO MASSES NO HEPATOMEGALY, NO SPLENOMEGALY, NO MEJIA'S SIGN, NO HERNIAS. NO FOCAL PAIN RECTAL: DEFERRED GENITAL: DEFERRED NEUROLOGICAL: NORMAL SPEECH, MOTOR FUNCTION INTACT, SENSORY FUNCTION INTACT MUSCULOSKELETAL: NECK NONTENDER, FULL RANGE OF MOTION, BACK NONTENDER, FULL RANGE OF MOTION, EXTREMITIES: NONTENDER, FULL RANGE OF MOTION SKIN: COLOR PINK, DRY, NO TURGOR, NO RASH, NO LACERATIONS, NO ABRASIONS, NO CONTUSIONS. LYMPHATIC: DEFERRED Results (Laboratory/Radiology) Laboratory/Radiology Laboratory Tests Test 09/25/25 10:15 09/25/25 10:23 09/25/25 10:26 SARS-CoV-2 Antigen (Rapid) PRESUMPTIVE NEGATIVE Urine Color YELLOW (YELLOW) Urine Appearance CLOUDY (CLEAR) H Urine pH 6.5 (5.0-8.0) Urine Specific Ernest 1.032 (1.001-1.031) Urine Protein 50 mg/dL (NEGATIVE) H Urine Glucose (UA) NEGATIVE mg/dL (NEGATIVE) Urine Ketones 10 mg/dL (NEGATIVE) H Urine Occult Blood NEGATIVE (NEGATIVE) Urine Nitrate NEGATIVE (NEGATIVE) Urine Bilirubin NEGATIVE mg/dL (NEGATIVE) Urine Urobilinogen 2.0 mg/dL (0.2-1.0) H Urine Leukocyte Esterase 500 [place]ham/uL (NEGATIVE) H Urine RBC 0-1 /HPF (0-1) Urine WBC 51-100 /HPF (0-1) H Urine Squamous Epithelial Cells Few /HPF (0-2) Urine Bacteria Moderate /HPF (None Seen) H White Blood Count 10.0 K/uL (4.8-10.8) Red Blood Count 3.58 MIL/uL (4.50-6.20) L Hemoglobin 11.8 g/dL (14.0-18.0) L Hematocrit 33.8 % (42-54) L Mean Corpuscular Volume 94.4 fL (79-99) Mean Corpuscular Hemoglobin 33.0 pg (27.0-33.0) Mean Corpuscular Hemoglobin Concent 34.9 g/dL (32.0-36.0) Red Cell Distribution Width 14.8 % (11.0-15.5) Platelet Count 151 K/uL (130-400) Mean Platelet Volume 10.4 fL (7.5-10.5) Immature Granulocyte % (Auto) 0.4 % (0-1) Neutrophils (%) (Auto) 66.7 % (40.0-77.0) Lymphocytes (%) (Auto) 20.4 % (21.0-51.0) L Monocytes (%) (Auto) 9.9 % (3.0-13.0) Eosinophils (%) (Auto) 2.3 % (0.0-8.0) Basophils (%) (Auto) 0.3 % (0.0-5.0) Neutrophils # (Auto) 6.6 K/uL (1.8-7.7) Lymphocytes # (Auto) 2.0 K/uL (1.0-4.8) Monocytes # (Auto) 1.0 K/uL (0.1-1.0) Eosinophils # (Auto) 0.23 K/uL (0.00-0.70) Basophils # (Auto) 0.03 K/uL (0.00-0.20) Absolute Immature Granulocyte (auto 0.04 K/uL (0-1) Nucleated Red Blood Cells 0.0 % (0.0-0.19) Sodium Level 139 mmol/L (136-145) Potassium Level 4.2 mmol/L (3.5-5.1) Chloride Level 106 mmol/L (101-111) Carbon Dioxide Level 27 mmol/L (21-32) Blood Urea Nitrogen 18 mg/dL (7-18) Creatinine 0.9 mg/dL (0.5-1.3) Glomerular Filtration Rate Calc 91 mL/min (>90) Random Glucose 84 mg/dL (70-105) Total Calcium 8.8 mg/dL (8.5-10.1) Total Bilirubin 1.6 mg/dL (0.2-1.0) H Aspartate Amino Transf (AST/SGOT) 35 U/L (10-37) Alanine Aminotransferase (ALT/SGPT) 30 U/L (12-78) Alkaline Phosphatase 77 U/L (50-136) Ammonia 105 umol/L (11-32) H Troponin I High Sensitivity 19 ng/L (4-75) B-Type Natriuretic Peptide 301 pg/mL (0-100) H Total Protein 5.5 g/dL (6.0-8.3) L Albumin 2.2 g/dL (3.5-5.0) L IMAGING REPORT Signed PATIENT: TORITO LINCOLN MR#: [id number] : 1955 SEX: M AGE: 70 LOCATION: [facility] ORDER 1007 STATUS: [facility] REPORT#: [id number] SERVICE 1005 REASON: COUGH ORDERING PHYSICIAN: LEE BOYLE DIRECTOR OF FINANCIAL PLANNING PROCEDURE: CXR1VW - CHEST 1VW EXAM: CR Chest, 1 View. CLINICAL HISTORY: COUGH COMPARISON: None provided. FINDINGS: LUNGS: There is a mild elevation of the left hemidiaphragm with haziness in the left lower zone. There is no mass, infiltrate, or acute pulmonary abnormality. PLEURAL SPACES: No evidence of pleural effusion or pneumothorax. MEDIASTINUM: The cardiomediastinal silhouette is within normal limits. BONES: No acute osseous abnormality. IMPRESSION: There is mild elevation of left hemidiaphragm with haziness in left lower zone, concerning for lower lobe pathology. No acute cardiopulmonary pathology is evident. /[facility] Reviewed?: Yes EKG Comment: EKG SINUS BRADYCARDIA/HEART RATE 48/AXIS NORMAL/NO ECTOPY ED Course ED Course Orders Procedure Category Date Status Time Covid19 (Sars Antigen LAB 09/25/25 Complete Rapid) 10:05 B-Type Natriuretic LAB 09/25/25 Complete Peptide 10:05 Cbc With Differential LAB 09/25/25 Complete 10:05 Troponin I High LAB 12/2/25 Complete Sensitivity 10:05 Urinalysis Profile LAB 09/25/25 Complete 10:05 12 Lead Ekg Tracing- EKG 09/25/25 Complete Technical 10:05 Chest 1vw RAD 09/25/25 Resulted 10:05 Comprehensive LAB 09/25/25 Complete Metabolic Panel 10:10 Ammonia LAB 09/25/25 Complete 10:10 Culture Urine GLORIA 09/25/25 In Process 10:55 Vital Signs Date Time Temp Pulse Resp B/P (MAP) Pulse Ox O2 Delivery O2 Flow Rate FiO2 09/25/25 11:41 98.1 48 18 148/74 98 Room Air* 0 21 09/25/25 10:18 98.1 53 18 152/60 99 Room Air* 0 21 09/25/25 10:00 51 18 152/60 99 Room Air 0 1210/SPOKE WITH PATIENT AT LENGTH REGARDING EKG LABS CHEST X-RAY. HE DOES NOT WISH TO STAY IN THE HOSPITAL AT THIS TIME. HE WANTS TO BE DISCHARGED HOME AFTER TREATMENT AND WE WILL FOLLOW UP WITH THE HIS HIV DOCTOR IN THE NEXT SEVERAL DAYS. HE HAS HAD NO NAUSEA VOMITING SINCE LAST NIGHT AND THERE HAS BEEN NO COUGH IN TRIAGE. OR IN THE EMERGENCY HEART Score Response (Comments) Value History: Low suspicion (0) 0 Age: > 65yrs (+2) 2 Risk Factors: 1-2 risk factors (+1) 1 Initial Troponin: Normal limit (0) 0 Total 3 Medical Decision Making MDM MDM: DIFFERENTIAL DIAGNOSIS: ACS/AMI/PNEUMONIA/BRONCHITIS/FLUID OVERLOAD/ELECTROLYTE IMBALANCE/DEHYDRATION/SARS COVID RATIONALE: TESTS CONSIDERED AND ORDERED SECONDARY TO SHARED DECISION MAKING INCLUDE: LABS/EKG/RADIOLOGY PREVIOUS OUTSIDE RECORDS REVIEWED: OLD ER VISITS. RISK OF COMPLICATION AND/OR MORBIDITY OR MORTALITY OF PATIENT MANAGEMENT: NONE MEDICATIONS-PER MEDICATION RECONCILIATION NEED FOR HOSPITALIZATION: PATIENT DOES NOT MEET CRITERIA FOR HOSPITALIZATION. PATIENT REFUSES ADMISSION AT THIS TIME. STATES HE WISHES TO GO HOME AND WE WILL FOLLOW UP WITH HIS HIV PHYSICIAN NEED FOR EMERGENCY MAJOR/MINOR SURGERY: NO THERE ARE NO SOCIAL CONCERNS WITH THIS PATIENT. PRESCRIPTION DRUG MANAGEMENT AUGMENTIN/LACTULOSE/ZOFRAN PRESCRIPTIONS WILL INCLUDE SYMPTOMATIC CARE PATIENT'S PRIOR EXTERNAL MEDICAL RECORDS FROM OTHER ER VISITS WERE REVIEWED BY ME INDICATED. PRIOR TESTING AND RESULTS FROM PREVIOUS VISITS WERE REVIEWED. PRIOR TESTS WERE TAKEN INTO ACCOUNT WITH MEDICAL DECISION MAKING AND RESOURCE UTILIZATION, INDEPENDENT HISTORIAN/HISTORIANS WERE USED TO OBTAIN COMPLETE MEDICAL HISTORY. I INDEPENDENTLY INTERPRETED THE TEST THAT WERE PERFORMED, RESULTS WERE REVIEWED BY ME AND CONSIDERED FINDINGS ON RADIOLOGY IF ORDERED. MEDICAL MANAGEMENT AND EXAMINATION INTERPRETATION DISCUSSIONS WERE HAD BY ME WITH OTHER QUALIFIED HEALTHCARE PROFESSIONALS INDICATED FOR THE PATIENT'S CARE. DX & DISP Disposition: Discharge Departure Impression: Primary Impression: Hyperammonemia Additional Impressions: UTI (urinary tract infection), HIV (human immunodeficiency virus infection), Cirrhosis Condition: Stable Scripts Lactulose (Lactulose) 10 Gram/15 Ml Solution 30 ML PO BID for constipation, #500 ML 0 Refills Prov: LEE BOYLE 09/25/25 Amoxicillin/Potassium Clav (Amox Tr-K Clv 875-125 mg Tab) 875 Mg-125 Mg Tablet 1 EACH PO BID for 5 Days, #10 TAB 0 Refills Prov: LEE BOYLE 09/25/25 Additional Instructions: FOLLOW-UP WITH PRIMARY CARE PROVIDER IN 1 TO 2 DAYS. TAKE MEDICATIONS DIRECTED HERE IN THE EMERGENCY ROOM. OKAY TO CONTINUE HOME MEDICATIONS UNLESS OTHERWISE DISCUSSED DURING YOUR VISIT IN THE EMERGENCY ROOM TODAY. RETURN TO YOUR NEAREST EMERGENCY ROOM IF SYMPTOMS WORSEN OR IF THERE IS NO IMPROVEMENT. CALL 911 IF YOU NEED IMMEDIATE ASSISTANCE. TAKE TYLENOL OR MOTRIN [id number] NEEDED AND IF NO CONTRAINDICATIONS ARE PRESENT. INCREASE ORAL HYDRATION. A WOUND CULTURE OR URINE CULTURE WAS ORDERED HERE IN THE EMERGENCY ROOM DEPARTMENT PLEASE FOLLOW-UP WITH PRIMARY CARE PROVIDER AND ADVISE THEM TO GET REPEAT PORTS FROM OUR FACILITY. IF YOU HAD ANY ODALYS WRAP/SPLINTS THAT WERE APPLIED HERE, PLEASE DO NOT REMOVE THEM UNTIL YOU SEE YOUR PRIMARY CARE OR SPECIALTY. TAKE AUGMENTIN DIRECTED UNTIL GONE. DRINK LACTULOSE TWICE A DAY DIRECTED. FOLLOW UP WITH THE YOUR HIV DOCTOR/SPECIALIST IN THE NEXT 3-4 DAYS FOR MANAGEMENT. Referrals: CROW LAMBERT DO (PCP) Time of Disposition: 12:11 I have reviewed the case, and I agree with, Diagnosis and Plan LEE BOYLE Sep 25, 2025 10:16
[2025-09-25 10:33] LABS: IMMATURE GRANULOCYTE ABSOLUTE 0.04 K/uL (0-1); NUCLEATED RED BLOOD CELLS 0.0 % (0.0-0.19); PLATELET COUNT (AUTO) 151 K/uL (130-400); RED BLOOD CELL COUNT(AUTO) 3.58 MIL/uL (4.50-6.20); RED CELL DISTRIBUTION WIDTH 14.8 % (11.0-15.5); WHITE BLOOD COUNT (AUTO) 10.0 K/uL (4.8-10.8)
--- NOTE | 2025-09-25 10:33 | EKG ---
[facility] Test Date: 2025-09-25 Test Time: 10:07:42 Pat Name: TORITO LINCOLN Department: ED Room: Gender: Wool Puller: [id number] : 1955 Requested By: LEE BOYLE Order Number: [id number] Reading MD: Portillo Dixon Measurements Intervals [place] Rate: 48 P: 34 IN: 186 QRS: -2 QRSD: 101 T: 32 QT: 478 QTc: 429 Interpretive Statements Sinus bradycardia Compared to ECG 02/18/2025 07:43:08 Sinus rhythm no longer present Atrial premature complex(es) no longer present Electronically Signed On 09-25-2025 18:21:31 TRAUMA DIRECTOR by Portillo Dixon Please click the below link to view image of tracing.
[2025-09-25 10:38] LABS: CREATININE 0.9 mg/dL (0.5-1.3); GLOMERULAR FILTR. RATE CALC 91.0 mL/min (>90); GLUCOSE,RANDOM 84.0 mg/dL (70-105); SODIUM SERUM 139.0 mmol/L (136-145); UREA NITROGEN, BLOOD 18.0 mg/dL (7-18)
[2025-09-25 10:45] LABS: ASPARTATE AMINOTRANSFERASE 35.0 U/L (10-37); TOTAL PROTEIN, SERUM 5.5 g/dL (6.0-8.3)
[2025-09-25 10:52] LABS: APPEARANCE,URINE CLOUDY (CLEAR); GLUCOSE, URINE (UA) NEGATIVE (NEGATIVE); LEUKOCYTE ESTERASE ,URINE 500 Leu/uL (NEGATIVE); NITRATE,URINE NEGATIVE (NEGATIVE); OCCULT BLOOD,URINE NEGATIVE (NEGATIVE)
[2025-09-25 10:54] LABS: ADD UA MICROSCOPIC YES
--- NOTE | 2025-09-25 11:04 | HMCIMG ---
EXAM: CR Chest, 1 View. CLINICAL HISTORY: COUGH COMPARISON: None provided. FINDINGS: LUNGS: There is a mild elevation of the left hemidiaphragm with haziness in the left lower zone. There is no mass, infiltrate, or acute pulmonary abnormality. PLEURAL SPACES: No evidence of pleural effusion or pneumothorax. MEDIASTINUM: The cardiomediastinal silhouette is within normal limits. BONES: No acute osseous abnormality. IMPRESSION: There is mild elevation of left hemidiaphragm with haziness in left lower zone, concerning for lower lobe pathology. No acute cardiopulmonary pathology is evident. /[place]
[2025-09-25 11:10] LABS: SQUAMOUS EPITHELIAL CELL,UR Few /HPF (0-2)
[2025-09-25 11:41] VITALS: BP 148/74; PULSE 48; RESP 18; TEMP 98; O2SAT 98
[2025-09-25] MEDS: AMOX/CLAV 875/125MG TAB PO ONE (12:14)
--- NOTE | 2025-09-25 12:18 | NUR ---
PT AAOX3 STABLE , VITALS WNL NO C/O PAIN NOW, PT GIVEN LOADING DOSE OF ABX IN ER TRIAGE, PT GIVEN INSTRUCTIONS FOR HOME TWO RX EMAILED TO PT PHARMACY WILL START TODAY. PT WALKED OUT TO ED LOBBY DROVE HIMSELF HOME.
== END 2025-09-25 12:21 | disposition home or self-care (01) ==
LOC: EDH 09:56
DX: N39.0 Urinary tract infection, site not specified (principal); E72.20 Disorder of urea cycle metabolism, unspecified; K74.60 Unspecified cirrhosis of liver; I10 Essential (primary) hypertension; Z21 Asymptomatic human immunodeficiency virus [HIV] infection status; Z79.624 Long term (current) use of inhibitors of nucleotide synthesis; Z79.899 Other long term (current) drug therapy; Z20.822 Contact with and (suspected) exposure to COVID-19
CPT/HCPCS: 36415; 71045; 80053; 81001; 82140; 83880; 84484; 85025; 87086; 87186; 87426; 93005; 99285

== ENCOUNTER 2025-10-15 13:01 | Emergency (ER) | payer OTHER ==
[~2025-10-15] VITALS: Ht 170.2 cm; Wt 72.6 kg
[~2025-10-15 13:01] MED LIST changes: +AMOX1TAB16 PO; +CEPH500C2 PO; +LACT-441 PO; +LACT10SO85 PO
--- NOTE | 2025-10-15 13:30 | EKG ---
[facility] Test Date: 2025-10-15 Test Time: 13:23:50 Pat Name: TORITO LINCOLN Department: ED Room: Gender: M Senior Software Project Manager: [id number] : 1955 Requested By: NIURKA IRIZARRY Order Number: [id number] Reading MD: Brooks Meza Measurements Intervals [place] Rate: 103 P: -2 [place]: 174 QRS: -9 QRSD: 95 T: 159 QT: 318 QTc: 416 Interpretive Statements Sinus tachycardia Probable left atrial enlargement Nonspecific T abnormalities, lateral leads Compared to ECG 09/25/2025 10:07:42 T-wave abnormality now present Sinus bradycardia no longer present Electronically Signed On 10-15-2025 19:11:20 PULLING UNIT OPERATOR by Brooks Meza Please click the below link to view image of tracing.
[2025-10-15 13:43] LABS: IMMATURE GRANULOCYTE ABSOLUTE 0.03 K/uL (0-1); NUCLEATED RED BLOOD CELLS 0.0 % (0.0-0.19); PLATELET COUNT (AUTO) 198 K/uL (130-400); RED BLOOD CELL COUNT(AUTO) 4.09 MIL/uL (4.50-6.20); RED CELL DISTRIBUTION WIDTH 15.0 % (11.0-15.5); WHITE BLOOD COUNT (AUTO) 9.6 K/uL (4.8-10.8)
[2025-10-15 13:59] LABS: CREATININE 1.0 mg/dL (0.5-1.3); GLOMERULAR FILTR. RATE CALC 80.0 mL/min (>90); GLUCOSE,RANDOM 111.0 mg/dL (70-105); SODIUM SERUM 140.0 mmol/L (136-145); UREA NITROGEN, BLOOD 24.0 mg/dL (7-18)
[2025-10-15 14:04] LABS: CREATINE KINASE, TOTAL 123.0 U/L (21-232)
[2025-10-15] MEDS: LACTATED RINGERS 1000ML 1,000 ML IV ONE (14:31)
--- NOTE | 2025-10-15 14:51 | ERN ---
General Chief Complaint: Abdominal Pain Stated Complaint: ABD CRAMPING, N/V Time Seen by MD: 13:04 History of Present Illness Initial Comments 70-year-old male, history of HIV, hypertension, who presents for five days of vomiting and weakness. Patient reports he has been vomiting multiple times a day for the last five days. He reports some generalized abdominal cramping, no flank tenderness. He does not have a gallbladder. No fevers cough congestion sore throat. No diarrhea dysuria. He reports he has been having very little oral intake, but he is able to drink some water. He feels weak. It has been about five days. He has never had this before. Allergies: Coded Allergies: No Known Drug Allergies (Unverified Allergy, Unknown, 06/06/19) Home Meds Active Scripts Lactulose (Lactulose) 10 Gram/15 Ml Solution, 30 ML PO BID for constipation, #500 ML 0 Refills Prov:LEE BOYLE HEAD COUNSELOR 09/25/25 Amoxicillin/Potassium Clav (Amox Tr-K Clv 875-125 mg Tab) 875 Mg-125 Mg Tablet, 1 EACH PO BID for 5 Days, #10 TAB 0 Refills Prov:LEE BOYLE HEAD COUNSELOR 09/25/25 Lactulose (Lactulose) 10 Gram/15 Ml Solution, 30 ML PO TID PRN for tid for 5 Days, #500 ML 0 Refills Prov:NIURKA IRIZARRY DO 02/18/25 Cephalexin (Cephalexin) 500 Mg Capsule, 1 CAP PO BID for 5 Days, #10 CAP 0 Refills Prov:NIURKA IRIZARRY DO 02/18/25 Cephalexin Monohydrate (Keflex) 500 Mg Cap, 500 MG PO BID for 5 Days, #10 CAP Prov:CLARISA EDGAR MD 02/14/22 Acetaminophen with Codeine (Acetaminophen-Cod #3 Tablet) 1 Each Tablet, 1 EACH PO QID, #15 TAB Prov:CLARISA EDGAR MD 02/14/22 Albuterol Sulfate (Proair Hfa) 8.5 Gm Hfa.aer.ad, 2 PUFF IH QIDP, #1 INHALER Prov:CHUY LAGOS 10/05/21 Acetaminophen (Tylenol) 325 Mg Tablet, 650 MG PO Q4HPRN, #50 TAB Prov:CHUY LAGOS 10/05/21 Cephalexin Monohydrate (Keflex) 500 Mg Cap, 500 MG PO TID for 7 Days, #21 CAP Prov:CHUY LAGOS 10/05/21 Ondansetron (Ondansetron Odt) 4 Mg Tab.rapdis, 4 MG PO TID, #21 TAB Prov:CHUY LAGOS 09/01/21 Cephalexin Monohydrate (Keflex) 500 Mg Cap, 500 MG PO TID, #21 CAP Prov:CHUY LAGOS 09/01/21 Albuterol Sulfate (Proair Hfa) 8.5 Gm Hfa.aer.ad, 2 PUFF IH QIDP, #1 INHALER Prov:CHUY LAGOS 08/22/21 Reported Medications Cyanocobalamin (Vitamin B-12) (Vitamin B12) 2,500 Mcg Tablet, 100 MCG PO DAILY, TAB 09/19/22 Tamsulosin HCl (Flomax) 0.4 Mg Cap.er.24h, 0.4 MG PO DAILY, CAPSULE. 09/19/22 Dolutegravir Sodium/Lamivudine (Dovato 50-300 mg Tablet) 1 Each Tablet, 1 EACH PO DAILY, TAB 09/19/22 Past Medical History Past Medical History: HIV, Hypertension, Liver Disease Medical History Other: HIV, obesity, portal venous hypertension, cirrhosis Past Surgical History: Other Surgical History Other: RT HIP REPLACEMENT Family History Family History: Negative Social History Social History: Negative, Lives with family ROS Dictation CONSTITUTIONAL: Generalized fatigue and weakness HEAD/FACE: No signs of trauma. EENT: No eye pain, no blurred vision, no tearing, no double vision, no ear pain, no ear discharge, no nose pain, no nasal congestion, no throat pain, no throat swelling, no mouth pain. RESPIRATORY: No cough, no orthopnea, no SOB, no stridor, no wheezing. CARDIOVASCULAR: No chest pain, no edema, no palpitations, no syncope. GASTROINTESTINAL/ABDOMINAL: Vomiting generalized abdominal discomfort GENITOURINARY: No abnormal discharge, no dysuria, no frequent urination, no hematuria. No complaints of pain in the genitals. MUSCULOSKELETAL: No back pain, no gout, no joint pain, no joint swelling, no muscle pain, no muscle stiffness, no neck pain. INTEGUMENTARY: No change in color, no change in hair/nails, no dryness, no lesion, no lumps, no rash. NEUROLOGICAL/PSYCH: No anxiety, not depressed, no emotional problem, no headache, no numbness, no pre-existing deficit, no history of seizures, no tr emors, no weakness. HEMATOLOGIC/LYMPHATIC: Not anemic, no history of blood clots, no apparent bleeding, no bruising, glands not swollen. All Systems Negative, Except as Noted. Physical Exam Physical Exam Dictation VITAL SIGNS: Reviewed. GENERAL APPEARANCE: Alert, oriented x3, no acute distress, obese. HEAD AND FACE: Non-traumatic. EYES: PERRL, pink conjunctivas, eyelid no trauma, anterior chamber clear. EARS: Pinnas intact and no signs of trauma or erythema. Ear canals clear and no discharge. TMs no erythema. NOSE: No discharge, no bleeding. OROPHARYNX: Mouth normal, teeth no caries, tongue pink. Pharynx clear, no erythema. Tonsils no exudates, no abscesses noted. Mucous membrane moist. NECK: Supple, non-tender, no thyromegaly, no masses, no JVD, no bruits. BREAST: Deferred. CHEST: No tenderness, no crepitus, no paradoxical movement, no retractions. LUNGS: Clear, well-ventilated, symmetric, no rales, no wheezing, no rhonchi, no stridor, good breath sounds bilaterally. HEART: Regular rate, regular rhythm, no murmur, no gallops. VASCULAR: No peripheral edema. ABDOMEN: Soft, positive bowel sounds, nondistended, no guarding, nontender, no rebound, no masses no hepatomegaly, no splenomegaly, no Romero's sign, no hernias. RECTAL: Deferred. GENITAL: Deferred. NEUROLOGICAL: Normal speech, gross motor function intact, gross sensory function intact. MUSCULOSKELETAL: Neck nontender, full range of motion, back nontender, full range of motion. EXTREMITIES: Nontender, full range of motion. SKIN: Color pink, dry, no turgor, no rash, no lacerations, no abrasions, no contusions. LYMPHATICS: Deferred. Results Laboratory and Microbiology Lab and Micro Result Laboratory Tests Test 10/15/25 13:26 10/15/25 15:15 White Blood Count 9.6 K/uL (4.8-10.8) Red Blood Count 4.09 MIL/uL (4.50-6.20) L Hemoglobin 13.0 g/dL (14.0-18.0) L Hematocrit 37.9 % (42-54) L Mean Corpuscular Volume 92.7 fL (79-99) Mean Corpuscular Hemoglobin 31.8 pg (27.0-33.0) Mean Corpuscular Hemoglobin Concent 34.3 g/dL (32.0-36.0) Red Cell Distribution Width 15.0 % (11.0-15.5) Platelet Count 198 K/uL (130-400) Mean Platelet Volume 10.0 fL (7.5-10.5) Immature Granulocyte % (Auto) 0.3 % (0-1) Neutrophils (%) (Auto) 63.7 % (40.0-77.0) Lymphocytes (%) (Auto) 24.0 % (21.0-51.0) Monocytes (%) (Auto) 10.1 % (3.0-13.0) Eosinophils (%) (Auto) 1.6 % (0.0-8.0) Basophils (%) (Auto) 0.3 % (0.0-5.0) Neutrophils # (Auto) 6.1 K/uL (1.8-7.7) Lymphocytes # (Auto) 2.3 K/uL (1.0-4.8) Monocytes # (Auto) 1.0 K/uL (0.1-1.0) Eosinophils # (Auto) 0.15 K/uL (0.00-0.70) Basophils # (Auto) 0.03 K/uL (0.00-0.20) Absolute Immature Granulocyte (auto 0.03 K/uL (0-1) Nucleated Red Blood Cells 0.0 % (0.0-0.19) Sodium Level 140 mmol/L (136-145) Potassium Level 4.2 mmol/L (3.5-5.1) Chloride Level 109 mmol/L (101-111) Carbon Dioxide Level 24 mmol/L (21-32) Blood Urea Nitrogen 24 mg/dL (7-18) H Creatinine 1.0 mg/dL (0.5-1.3) Glomerular Filtration Rate Calc 80 mL/min (>90) Random Glucose 111 mg/dL (70-105) H Total Calcium 8.8 mg/dL (8.5-10.1) Total Bilirubin 1.3 mg/dL (0.2-1.0) H Direct Bilirubin 0.3 mg/dL (0.0-0.3) Aspartate Amino Transf (AST/SGOT) 35 U/L (10-37) Alanine Aminotransferase (ALT/SGPT) 37 U/L (12-78) Alkaline Phosphatase 88 U/L (50-136) Ammonia 126 umol/L (11-32) *H Total Creatine Kinase 123 U/L (21-232) Troponin I High Sensitivity 13 ng/L (4-75) Total Protein 5.6 g/dL (6.0-8.3) L Albumin 2.3 g/dL (3.5-5.0) L Lipase 54 U/L (16-77) Urine Color YELLOW (YELLOW) Urine Appearance CLOUDY (CLEAR) H Urine pH 6.5 (5.0-8.0) Urine Specific [place] 1.028 (1.001-1.031) Urine Protein 30 mg/dL (NEGATIVE) H Urine Glucose (UA) NEGATIVE mg/dL (NEGATIVE) Urine Ketones 5 mg/dL (NEGATIVE) H Urine Occult Blood NEGATIVE (NEGATIVE) Urine Nitrate NEGATIVE (NEGATIVE) Urine Bilirubin NEGATIVE mg/dL (NEGATIVE) Urine Urobilinogen 6 mg/dL (0.2-1.0) H Urine Leukocyte Esterase 500 [place]/uL (NEGATIVE) H Urine RBC 11-25 /HPF (0-1) H Urine WBC 26-50 /HPF (0-1) H Urine WBC Clumps (Auto) RARE /HPF (0-1) Urine Squamous Epithelial Cells RARE /HPF (0-2) Urine Other Crystals (Auto) 3 /HPF (None Seen) Urine Bacteria RARE /HPF (None Seen) MDM CC: Vomiting, weakness Historian: Patient Comorbidities: HIV, retention, cirrhosis Limitations by social determinants of health: None Differential diagnosis: Dehydration, surgical pathology, electrolyte abnormality, other Vital signs: initially mildly tachycardic 112, improved in the ER with treatment. Labs show no leukocytosis. Hemoglobin 13. Electrolytes stable. BUN 24 creatinine one elevated BUN to creatinine ratio consistent with dehydration. Liver enzymes show a T bili 1.3 otherwise unremarkable. CK troponin stable. Lipase stable. Ammonia 126. No signs of hepatic encephalopathy. He is at baseline mentation GCS [address] of the abdomen and pelvis shows no acute abnormalities. UA shows some LE, will treat. Patient received IV fluids and ondansetron in the ED. He reports feeling much better. He is ambulatory p.o. tolerant nontoxic in appearance. I did offer the patient admission for further treatment for the dehydration, but he reports he feels much better and would like to go home. We will discharge with a prescript ion for ondansetron and recommend PCP follow up. Patient is agreeable to the plan. ED Course Orders Procedure Category Date Status Time 12 Lead Ekg Tracing- EKG 10/15/25 Complete Technical 13:07 Cbc With Differential LAB 10/15/25 Complete 13:07 Troponin I High LAB 10/15/25 Complete Sensitivity 13:07 Urinalysis Profile LAB 10/15/25 Complete 13:07 Ct Abdomen/Pelvis CT 10/15/25 Resulted W/Contrast 13:07 Lactated Ringers PHA 10/15/25 Complete 1000ml (Lactated 13:30 Ondansetron 4mg Inj PHA 10/15/25 Complete (Zofran 4mg Inj) 13:30 Creatine Kinase, Total LAB 10/15/25 Complete 13:07 Chest 1vw RAD 10/15/25 Resulted 13:07 Lipase LAB 10/15/25 Complete 13:07 Basic Metabolic Panel LAB 10/15/25 Complete 13:07 Ammonia LAB 10/15/25 Complete 13:09 Hepatic Function Panel LAB 10/15/25 Complete 14:13 Culture Urine GLORIA 10/15/25 In Process 15:37 Iohexol (Omnipaque) PHA 10/15/25 Complete 15:52 Ceftriaxone 1g Vial PHA 10/15/25 In Process (Rocephine 1g Inj) 18:00 Current Medications Medications (Trade) Dose Ordered Sig/Roxana Route PRN Reason Start Time Stop Time Status Last Admin Dose Admin Ceftriaxone Sodium (ROCEphine 1G INJ) 1 gm ONCE ONCE IVPB 10/15/25 18:00 10/15/25 18:01 10/15/25 17:47 Iohexol (Omnipaque) 75 ml STK-MED ONCE IV 10/15/25 15:52 10/15/25 15:52 DC Lactated Ringer's 1,000 ml @ 0 mls/hr ONCE ONCE IV 10/15/25 13:30 10/15/25 13:31 DC 10/15/25 14:31 Ondansetron HCl (zoFRAN 4MG INJ) 4 mg ONCE ONCE IVP 10/15/25 13:30 10/15/25 13:31 DC 10/15/25 14:31 Vital Signs Date Time Temp Pulse Resp B/P (MAP) Pulse Ox O2 Delivery O2 Flow Rate FiO2 10/15/25 17:01 63 18 152/66 97 Room Air* 0 10/15/25 14:40 69 18 154/81 99 Room Air* 0 21 10/15/25 13:03 99.0 112 20 147/60 97 Room Air 0 DX & DISP Disposition: Discharge Departure Impression: Primary Impression: Dehydration Additional Impression: UTI (urinary tract infection) Condition: Stable Scripts Cephalexin (Cephalexin) 500 Mg Capsule 1 CAP PO BID for 5 Days, #10 CAP 0 Refills Prov: NIURKA IRIZARRY DO 10/15/25 Ondansetron (Ondansetron Odt) 4 Mg Tab.rapdis 1 TAB PO Q6HPRN PRN for nausea/vomiting for 4 Days, #16 TAB 0 Refills Prov: NIURKA IRIZARRY DO 10/15/25 Additional Instructions: Your symptoms are consistent with mild dehydration. You also have some bacteria in your urine and may have a infection. You received IV fluids, IV Rocephin (antibiotic) and IV ondansetron here in the ER. Your lab work shows mild dehydration but is otherwise unremarkable. You also has a an elevated ammonia level, but you have no symptoms of elevated ammonia at this time. I recommend he follow up with the primary doctor regarding this finding. The CT scan of your abdomen and pelvis does not show any major abnormalities at this time. I have prescribed ondansetron dissolvable tabs. Take this up to 3 times a day as needed for nausea. I have prescribed a short course of antibiotics. Please take as prescribed. Drink plenty of liquids. An electrolyte solution such as Gatorade has a good choice. Start with bananas and applesauce, and advance her diet as tolerated after that. As we discussed, I highly recommend that you follow up with your primary doctor later this week for re-evaluation. Return to the emergency department as needed. Referrals: CROW LAMBERT DO (PCP) NIURKA IRIZARRY DO Oct 15, 2025 14:51
[2025-10-15 14:55] LABS: ASPARTATE AMINOTRANSFERASE 35.0 U/L (10-37); TOTAL PROTEIN, SERUM 5.6 g/dL (6.0-8.3)
--- NOTE | 2025-10-15 15:01 | HMCIMG ---
STUDY CR Chest, 1 view. CLINICAL HISTORY Vomiting. TECHNIQUE Single frontal radiograph of the chest. COMPARISON Chest radiograph 09/25/2025 10:44 EST. FINDINGS LUNGS There is an elevated left hemidiaphragm with associated mild left basal atelectasis. No new focal consolidation or pulmonary edema is identified. Compared with the prior study, there is mild improvement in overall lung aeration. PLEURAL SPACES No pleural effusion or pneumothorax. MEDIASTINUM Cardiomediastinal silhouette is within normal limits. BONES No acute osseous abnormality. IMPRESSION * Elevated left hemidiaphragm with mild left basal atelectasis, with mild interval improvement in lung aeration compared with 09/25/2025. * No acute cardiopulmonary pathology otherwise identified. /Suresh
[2025-10-15 15:36] LABS: APPEARANCE,URINE CLOUDY (CLEAR); GLUCOSE, URINE (UA) NEGATIVE (NEGATIVE); LEUKOCYTE ESTERASE ,URINE 500 Leu/uL (NEGATIVE); NITRATE,URINE NEGATIVE (NEGATIVE); OCCULT BLOOD,URINE NEGATIVE (NEGATIVE)
[2025-10-15 15:37] LABS: ADD UA MICROSCOPIC YES
[2025-10-15 15:38] LABS: SQUAMOUS EPITHELIAL CELL,UR RARE /HPF (0-2); UNCLASSIFIED CRYSTAL 3 /HPF (None Seen); WBC CLUMP RARE /HPF (0-1)
[2025-10-15] MEDS ORDERED: IOHEXOL-350 75 ML VIAL IV ONE (15:52)
--- NOTE | 2025-10-15 17:28 | HMCIMG ---
Exam: CT Abdomen and Pelvis with intravenous contrast Clinical Indication: Abdominal pain. Technique: Axial CT images of the abdomen and pelvis were acquired before and after intravenous contrast administration. Multiplanar reformatted images were reviewed. A total of 75 mL of iodinated contrast was administered. Comparison: Prior CT abdomen and pelvis with contrast dated February 18, 2025. Radiation Dose: CTDIvol: 20.20 mGy DLP: 1104.8 mGycm Findings: Liver: The liver demonstrates surface nodularity consistent with cirrhosis. There is volume redistribution with enlargement of the caudate and left lobe and relative atrophy of the right lobe. Gallbladder/Biliary Tree: Post-cholecystectomy status. Mild prominence of the bilobar intrahepatic biliary ducts and the common bile duct is present, likely physiologic post-cholecystectomy. Spleen: The spleen is enlarged, measuring 16 cm, with capsular calcifications. Numerous portosystemic collaterals are noted in the upper abdomen. Pancreas: The pancreas is unremarkable. Adrenal Glands: Both adrenals are unremarkable. Kidneys and Urinary Tract: Both kidneys are unremarkable. Symmetric contrast excretion is seen through the bilateral renal pelvicalyceal systems and ureters without hydroureteronephrosis. Mild prostatomegaly is present. Mild diffuse thickening of the urinary bladder wall measuring up to 4 mm is suggestive of sequelae of chronic bladder outlet obstruction. Gastrointestinal Tract: A few jejunal loops show circumferential wall thickening with associated mesenteric fat stranding, compatible with acute enteritis. Multiple fluid-filled small bowel loops in the lower abdomen are present without significant dilatation. A moderate amount of fecal material is present in the colon. The appendix is unremarkable. A small hiatal hernia is noted. Abdominal Aorta and Vasculature: The abdominal aorta demonstrates atheromatous calcification without aneurysm or dissection. Coronary arterial calcifications are also present. Mitral and aortic valve annulus calcifications are noted. Lungs (visualized extent): Numerous cystic lesions are present bilaterally, the largest in the right lower lobe measuring 3.3 x 1.7 cm. There is a 5 mm pleural-based calcific nodule in the lateral basal segment of the right lower lobe. Subsegmental atelectasis is present in the left lower lobe. The left hemidiaphragm is elevated. Abdominal Wall: No hernias are identified. Bones and Spine: Degenerative changes are present in the spine. At T11, there is a chronic-appearing compression deformity with 20% anterior vertebral height loss. Right total hip arthroplasty hardware is appropriately positioned without fracture, displacement, or dislocation. Impression: * Acute enteritis involving jejunal loops. * Cirrhosis with portal hypertension. * Right total hip arthroplasty: hardware in appropriate position, stable. * Numerous pulmonary cysts and a 5 mm pleural-based calcific nodule; subsegmental atelectasis of left lower lobe. * Mild prostatomegaly and chronic bladder wall thickening, consistent with sequelae of chronic bladder outlet obstruction. * Present with the prior CT scan of the abdomen and pelvis dated February 18, 2025, acute enteritis is a new finding. Rest of the findings remain stable. /Regina
[2025-10-15] MEDS ORDERED: ONDA-243 PO (17:55)
[2025-10-15 18:06] VITALS: BP 144/68; PULSE 67; RESP 18; TEMP 98.5; O2SAT 98
== END 2025-10-15 18:10 | disposition home or self-care (01) ==
LOC: EDH 13:01
DX: E86.0 Dehydration (principal); N39.0 Urinary tract infection, site not specified; E66.9 Obesity, unspecified; I10 Essential (primary) hypertension; Z21 Asymptomatic human immunodeficiency virus [HIV] infection status; Z79.624 Long term (current) use of inhibitors of nucleotide synthesis; Z96.641 Presence of right artificial hip joint; R11.10 Vomiting, unspecified
CPT/HCPCS: 99285; 74177; 96374; 71045; 96361; 96375; 82550; 80076; 84484; 80048; 82140; 83690; 85025; 87086 ×2; 87186; 81001; 36415; 93005; J7120 ×2; J0696; J2405; Q9967

== ENCOUNTER 2025-10-21 10:03 | Observation (INO) | payer OTHER ==
[~2025-10-21] VITALS: Ht 170.2 cm; Wt 71.5 kg
[2025-10-21] MEDS: 0.9%NACL 1000ML 1,000 ML IV ONE (10:26)
[2025-10-21 10:52] LABS: IMMATURE GRANULOCYTE ABSOLUTE 0.04 K/uL (0-1); NUCLEATED RED BLOOD CELLS 0.0 % (0.0-0.19); PLATELET COUNT (AUTO) 210 K/uL (130-400); RED BLOOD CELL COUNT(AUTO) 4.35 MIL/uL (4.50-6.20); RED CELL DISTRIBUTION WIDTH 14.9 % (11.0-15.5); WHITE BLOOD COUNT (AUTO) 10.1 K/uL (4.8-10.8)
[2025-10-21 11:08] LABS: CREATININE 1.2 mg/dL (0.5-1.3); GLOMERULAR FILTR. RATE CALC 65.0 mL/min (>90); GLUCOSE,RANDOM 129.0 mg/dL (70-105); SODIUM SERUM 138.0 mmol/L (136-145); UREA NITROGEN, BLOOD 15.0 mg/dL (7-18)
[2025-10-21 11:13] LABS: ASPARTATE AMINOTRANSFERASE 56.0 U/L (10-37); CREATINE KINASE, TOTAL 113.0 U/L (21-232); TOTAL PROTEIN, SERUM 6.1 g/dL (6.0-8.3)
--- NOTE | 2025-10-21 11:20 | HMCIMG ---
EXAM: CR Chest, 1 View. CLINICAL HISTORY: [facility] COMPARISON: None provided. FINDINGS: LUNGS: The lungs show no infiltrate or other acute finding. Bibasilar atelectasis. PLEURAL SPACES: No evidence of pleural effusion or pneumothorax. MEDIASTINUM: Cardiac size and mediastinal contours within normal limits. BONES: No acute osseous abnormality. IMPRESSION: No acute cardiopulmonary pathology is evident. /Pandora
[2025-10-21] MEDS ORDERED: NITROGLYCERIN 0.4 MG SL TAB SL PRN (12:30)
[2025-10-21] MEDS ORDERED: ARTIFICAL TEARS SOL 15 ML OP PRN (12:30)
[2025-10-21] MEDS ORDERED: LACTULOSE 20 GM/30 ML UDCUP PO PRN (12:30)
[2025-10-21] MEDS ORDERED: BENZOCAINE/MENTH/CETYLPYRD CL 1 EACH LOZENGE MM PRN (12:30)
[2025-10-21] MEDS ORDERED: MAG/ALUM/SIMETH 30 ML UDCUP PO PRN (12:30)
[2025-10-21] MEDS ORDERED: LIDOCAINE HCL 2% VISCOUS 30 ML, MAG/ALUM/SIMETH 30ML 30 ML, DICYCLOMINE HCL 20 MG PO PRN (12:30)
[2025-10-21] MEDS ORDERED: guaiFENesin-DM 200/20MG 10ML PO PRN (12:30)
[2025-10-21 12:38] LABS: APPEARANCE,URINE CLOUDY (CLEAR); GLUCOSE, URINE (UA) NEGATIVE (NEGATIVE); LEUKOCYTE ESTERASE ,URINE 500 Leu/uL (NEGATIVE); NITRATE,URINE NEGATIVE (NEGATIVE); OCCULT BLOOD,URINE NEGATIVE (NEGATIVE)
[2025-10-21 12:41] LABS: ADD UA MICROSCOPIC YES
[2025-10-21 12:44] LABS: SQUAMOUS EPITHELIAL CELL,UR FEW /HPF (0-2)
--- NOTE | 2025-10-21 13:08 | EKG ---
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
--- NOTE | 2025-10-21 13:09 | EKG ---
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
--- NOTE | 2025-10-21 14:28 | ERN ---
ED Note History of Present Illness Stated Complaint: DIZZINESS ONSET TODAY Chief Complaint: Dizzy/Light Headed Time Seen by MD: 10:13 Dictation: 70-year-old male presenting to the emergency department generalized weakness palpitations past medical history of HIV. Patient denies any history of arrhythmias. Borderline hypotension on arrival. Allergies: Coded Allergies: No Known Drug Allergies (Unverified Allergy, Unknown, 06/06/19) Home Meds Active Scripts Cephalexin (Cephalexin) 500 Mg Capsule, 1 CAP PO BID for 5 Days, #10 CAP 0 Refills Prov:NIURKA IRIZARRY DO 10/15/25 Ondansetron (Ondansetron Odt) 4 Mg Tab.rapdis, 1 TAB PO Q6HPRN PRN for nausea/vomiting for 4 Days, #16 TAB 0 Refills Prov:NIURKA IRIZARRY DO 10/15/25 Lactulose (Lactulose) 10 Gram/15 Ml Solution, 30 ML PO BID for constipation, #500 ML 0 Refills Prov:LEE BOYLE NEWS VIDEOGRAPHER 09/25/25 Amoxicillin/Potassium Clav (Amox Tr-K Clv 875-125 mg Tab) 875 Mg-125 Mg Tablet, 1 EACH PO BID for 5 Days, #10 TAB 0 Refills Prov:LEE BOYLE NEWS VIDEOGRAPHER 09/25/25 Lactulose (Lactulose) 10 Gram/15 Ml Solution, 30 ML PO TID PRN for tid for 5 Days, #500 ML 0 Refills Prov:NIURKA IRIZARRY DO 02/18/25 Cephalexin (Cephalexin) 500 Mg Capsule, 1 CAP PO BID for 5 Days, #10 CAP 0 Refills Prov:NIURKA IRIZARRY DO 02/18/25 Cephalexin Monohydrate (Keflex) 500 Mg Cap, 500 MG PO BID for 5 Days, #10 CAP Prov:CLARISA EDGAR MD 02/14/22 Acetaminophen with Codeine (Acetaminophen-Cod #3 Tablet) 1 Each Tablet, 1 EACH PO QID, #15 TAB Prov:CLARISA EDGAR MD 02/14/22 Albuterol Sulfate (Proair Hfa) 8.5 Gm Hfa.aer.ad, 2 PUFF IH QIDP, #1 INHALER Prov:CHUY LAGOS 10/05/21 Acetaminophen (Tylenol) 325 Mg Tablet, 650 MG PO Q4HPRN, #50 TAB Prov:YOLISJACQUIECHUY PA 10/05/21 Cephalexin Monohydrate (Keflex) 500 Mg Cap, 500 MG PO TID for 7 Days, #21 CAP Prov:CHUY LAGOS 10/05/21 Ondansetron (Ondansetron Odt) 4 Mg Tab.rapdis, 4 MG PO TID, #21 TAB Prov:CHUY LAGOS 09/01/21 Cephalexin Monohydrate (Keflex) 500 Mg Cap, 500 MG PO TID, #21 CAP Prov:CHUY LAGOS 09/01/21 Albuterol Sulfate (Proair Hfa) 8.5 Gm Hfa.aer.ad, 2 PUFF IH QIDP, #1 INHALER Prov:CHUY LAGOS 08/22/21 Reported Medications Cyanocobalamin (Vitamin B-12) (Vitamin B12) 2,500 Mcg Tablet, 100 MCG PO DAILY, TAB 09/19/22 Tamsulosin HCl (Flomax) 0.4 Mg Cap.er.24h, 0.4 MG PO DAILY, CAPSULE.DR 09/19/22 Dolutegravir Sodium/Lamivudine (Dovato 50-300 mg Tablet) 1 Each Tablet, 1 EACH PO DAILY, TAB 09/19/22 Past Medical History Past Medical History: Alcoholism, Anemia, Anxiety, CHF, COPD, HIV, H ypertension, Liver Disease, [place], URI Additional Past Medical Hx: HIV, obesity, portal venous hypertension, cirrhosis Surgical History: Other Surgical History Other: RT HIP REPLACEMENT Family History: Negative Social History: Negative, Lives with family Review of System Dictation Constitutional: Negative for fever,chills, and weight loss Eyes: Negative for injury, pain,redness, and discharge ENT: Negative for injury,pain or swelling Cardiovascular: Per HPI Respiratory: Negative for shortness of breath, cough, and wheezing, Abdomen/GI: Negative for abdominal pain, nausea, vomiting, diarrhea, and constipation Back: Negative for injury and pain : Negative for injury, bleeding and discharge MS/Extremity: Negative for injury and deformity Skin: Negative for rash, and discoloration Neuro: Per HPI Initial Vital Sign VS Vital Signs Date Time Temp Pulse Resp B/P (MAP) Pulse Ox O2 Delivery O2 Flow Rate FiO2 10/21/25 10:04 97.9 154 14 99/51 100 Room Air 0 10/21/25 10:26 21 Physical Exam Dictation General: awake, alert, uncomfortable Head/Face: Normocephalic, atraumatic Eyes: PERRL, EOMI, vision at baseline ENT: oral cavity clear, TMs clear, no signs of infection Neck: Trachea midline, supple, no nuchal rigidity Cardiovascular: Tachycardia irregularly irregular rhythm normal S1/S2, No MRGs, no JVD Respiratory: CTAB, no respiratory distress, No rales or wheezes Abdomen: Soft, non-tender, non-distended, normal bowel sounds, no guarding or rebound. Skin: Warm, dry, normal turgor, no rash MS/Extremity: Pulses equal, no cyanosis, neurovascular intact, FROM Neuro: COAx4, GCS 15, strength 5/5, CN 2-12 intact, normal cerebellar exam, normal gait, Psych: Normal behavior, mood, and affect normal Results (Laboratory/Radiology) Laboratory/Radiology Laboratory Tests Test 10/21/25 10:22 10/21/25 11:50 10/21/25 12:41 10/21/25 14:03 White Blood Count 10.1 K/uL (4.8-10.8) Red Blood Count 4.35 MIL/uL (4.50-6.20) L Hemoglobin 14.1 g/dL (14.0-18.0) Hematocrit 40.5 % (42-54) L Mean Corpuscular Volume 93.1 fL (79-99) Mean Corpuscular Hemoglobin 32.4 pg (27.0-33.0) Mean Corpuscular Hemoglobin Concent 34.8 g/dL (32.0-36.0) Red Cell Distribution Width 14.9 % (11.0-15.5) Platelet Count 210 K/uL (130-400) Mean Platelet Volume 10.4 fL (7.5-10.5) Immature Granulocyte % (Auto) 0.4 % (0-1) Neutrophils (%) (Auto) 62.8 % (40.0-77.0) Lymphocytes (%) (Auto) 24.1 % (21.0-51.0) Monocytes (%) (Auto) 10.5 % (3.0-13.0) Eosinophils (%) (Auto) 1.9 % (0.0-8.0) Basophils (%) (Auto) 0.3 % (0.0-5.0) Neutrophils # (Auto) 6.4 K/uL (1.8-7.7) Lymphocytes # (Auto) 2.4 K/uL (1.0-4.8) Monocytes # (Auto) 1.1 K/uL (0.1-1.0) H Eosinophils # (Auto) 0.19 K/uL (0.00-0.70) Basophils # (Auto) 0.03 K/uL (0.00-0.20) Absolute Immature Granulocyte (auto 0.04 K/uL (0-1) Nucleated Red Blood Cells 0.0 % (0.0-0.19) Sodium Level 138 mmol/L (136-145) Potassium Level 3.8 mmol/L (3.5-5.1) Chloride Level 106 mmol/L (101-111) Carbon Dioxide Level 26 mmol/L (21-32) Blood Urea Nitrogen 15 mg/dL (7-18) Creatinine 1.2 mg/dL (0.5-1.3) Glomerular Filtration Rate Calc 65 mL/min (>90) Random Glucose 129 mg/dL (70-105) H Lactic Acid Level 2.8 mmol/L (0.8-2.5) H 1.8 mmol/L (0.8-2.5) 2.2 mmol/L (0.8-2.5) Total Calcium 8.8 mg/dL (8.5-10.1) Total Bilirubin 1.4 mg/dL (0.2-1.0) H Direct Bilirubin 0.4 mg/dL (0.0-0.3) H Aspartate Amino Transf (AST/SGOT) 56 U/L (10-37) H Alanine Aminotransferase (ALT/SGPT) 46 U/L (12-78) Alkaline Phosphatase 84 U/L (50-136) Total Creatine Kinase 113 U/L (21-232) Troponin I High Sensitivity 15 ng/L (4-75) 17 ng/L (4-75) Total Protein 6.1 g/dL (6.0-8.3) Albumin 2.4 g/dL (3.5-5.0) L Urine Color YELLOW (YELLOW) Urine Appearance CLOUDY (CLEAR) H Urine pH 6.5 (5.0-8.0) Urine Specific [place] 1.033 (1.001-1.031) Urine Protein 50 mg/dL (NEGATIVE) H Urine Glucose (UA) NEGATIVE mg/dL (NEGATIVE) Urine Ketones NEGATIVE mg/dL (NEGATIVE) Urine Occult Blood NEGATIVE (NEGATIVE) Urine Nitrate NEGATIVE (NEGATIVE) Urine Bilirubin NEGATIVE mg/dL (NEGATIVE) Urine Urobilinogen 2.0 mg/dL (0.2-1.0) H Urine Leukocyte Esterase 500 [place]/uL (NEGATIVE) H Urine RBC 11-25 /HPF (0-1) H Urine WBC TNTC /HPF (0-1) H Urine Squamous Epithelial Cells FEW /HPF (0-2) Urine Bacteria MOD /HPF (None Seen) Procalcitonin < 0.05 ng/mL (0.05-0.5) L Thyroid Stimulating Hormone (TSH) 2.98 uIU/mL (0.36-3.74) # Labs Reviewed?: Yes EKG Comment: Atrial fibrillation with rapid ventricular response a heart rate of 153, no STEMI ED Course ED Course Orders Procedure Category Date Status Time 12 Lead Ekg Tracing- EKG 10/21/25 Complete Technical 10:14 Basic Metabolic Panel LAB 10/21/25 Complete 10:14 Blood Cult GLORIA 10/21/25 In Process 10:14 Cbc With Differential LAB 10/21/25 Complete 10:14 Hepatic Function Panel LAB 10/21/25 Complete 10:14 Creatine Kinase, Total LAB 10/21/25 Complete 10:14 Lactic Acid LAB 10/21/25 Complete 10:14 Troponin I High LAB 10/21/25 Complete Sensitivity 10:14 Urinalysis Profile LAB 10/21/25 Complete 10:14 Chest 1vw RAD 10/21/25 Resulted 10:14 Ceftriaxone 2gm Vial PHA 10/21/25 Complete (Rocephin 2gm Inj) 10:14 0.9%Nacl 1000ml (Ns PHA 10/21/25 Complete 1000ml) 10:30 Metoprolol Tartrate PHA 10/21/25 Complete (Lopressor) 10:21 12 Lead Ekg Tracing- EKG 10/21/25 Complete Technical 10:51 Famotidine 20mg Tab PHA 10/21/25 In Process (Pepcid 20mg Tab) 21:00 Diphenhydramine Hcl PHA 10/21/25 In Process (Benadryl Cap) 12:30 Diphenhydramine Hcl PHA 10/21/25 In Process (Benadryl Inj) 12:30 Acetaminophen 325 Tab PHA 10/21/25 In Process (Tylenol 325mg Tab 12:30 Acetaminophen 325 Tab PHA 10/21/25 In Process (Tylenol 325mg Tab 12:30 Ondansetron 4mg Inj PHA 10/21/25 In Process (Zofran 4mg Inj) 12:30 Mag/Alum/Simeth 30ml PHA 10/21/25 In Process (Maalox Plus 30ml) 12:30 Lactulose 20 Gm/30 Ml PHA 10/21/25 In Process Udcup (Constulose 12:30 Nitroglycerin 0.4mg PHA 10/21/25 In Process Sl Tab (Nitrostat) 12:30 Guaifenesin-Dm PHA 10/21/25 In Process 200/20mg 10ml 12:30 Famotidine 20mg Vial PHA 10/21/25 Complete (Pepcid 20mg Vial) 21:00 Procalcitonin LAB 10/21/25 Complete 12:30 Troponin I High LAB 10/21/25 Complete Sensitivity 12:30 Pt Eval And Treat PT 10/21/25 Transmitted 12:30 Case Management CM 10/21/25 Transmitted Evaluation 12:30 Guaifenesin Sug-Keo PHA 10/21/25 In Process 100 Mg/5ml (Robituss 12:30 Docusate Sodium 100 PHA 10/21/25 In Process Mg Cap (Colace 100mg 12:30 Polyethylene Glycol PHA 10/21/25 In Process 3350 (Miralax 3350 1 12:30 Lidocaine Hcl 2% PHA 10/21/25 In Process Viscous (Lidocaine Hcl 12:30 Natural Tears 15ml PHA 10/21/25 In Process (Artificial Tears) 12:30 Benzocaine/Menth/Cetylpyrd PHA 10/21/25 In Process Cl (Cepacol S 12:30 Admit Orders ADM 10/21/25 Transmitted 12:30 Telemetry Monitoring CPOE 10/21/25 Transmitted 12:30 Activity: Br W/Brp CPOE 10/21/25 Transmitted With Assist 12:30 Heart Healthy Diet DIET 10/21/25 Transmitted Lunch Thyroid Stimulating LAB 10/21/25 Complete Hormone 12:30 Lactic Acid LAB 10/21/25 Complete 12:30 Echo 2-D Complete ECHO 10/21/25 Logged 12:30 Cardiology Consult CONPHYSVC 10/21/25 Transmitted 12:30 Initiate NATALIE 10/21/25 In Process Hyperglycemia Protoco 12:30 Insulin Lispro 100 PHA 10/21/25 In Process Unit/Ml 3ml (Humalog 16:30 Metoprolol Tartrate PHA 10/21/25 In Process 25 Mg Tab (Lopressor 21:00 Enoxaparin Sodium 80 PHA 10/21/25 In Process Mg/0.8 Ml (Lovenox 21:00 Hiv-1 Rna Quant By LAB 10/21/25 In Process Pcr (Graph) 12:34 Culture Urine GLORIA 10/21/25 In Process 12:42 Lactic Acid (Removed) LAB 10/21/25 Complete 13:58 Current Medications Medications (Trade) Dose Ordered Sig/Roxana Route PRN Reason Start Time Stop Time Status Last Admin Dose Admin Acetaminophen (TYLenol 325MG TAB) 650 mg Q4H PRN PO MILD PAIN (1-3) 10/21/25 12:30 11/20/25 12:29 Acetaminophen (TYLenol 325MG TAB) 650 mg Q6H PRN PO TEMPERATURE GREATER THAN 101.5 10/21/25 12:30 11/20/25 12:29 Al Hydroxide/Mg Hydroxide (MAALox PLUS 30ML) 30 ml Q6H PRN PO INDIGESTION 10/21/25 12:30 11/20/25 12:29 Artificial Tears (Artificial Tears) 1 DROP Q2H PRN OP DRY EYES 10/21/25 12:30 11/20/25 12:29 Benzocaine (Cepacol Sore Throat Lozenge) 1 each Q2H PRN MM SORE THROAT 10/21/25 12:30 11/20/25 12:29 Ceftriaxone Sodium (Rocephin 2gm Inj) 2 gm ONCE STAT IVPB 10/21/25 10:14 10/21/25 10:21 DC 10/21/25 10:35 Diphenhydramine HCl (BENAdryl CAP) 25 mg Q4H PRN PO MILD ITCHING/RASH 10/21/25 12:30 11/20/25 12:29 Diphenhydramine HCl (BENAdryl INJ) 25 mg Q6H PRN IV SEVERE ITCHING/RASH 10/21/25 12:30 11/20/25 12:29 Docusate Sodium (COLace 100MG CAP) 100 mg BID PRN PO CONSTIPATION 10/21/25 12:30 11/20/25 12:29 Enoxaparin Sodium (Lovenox 80mg) 70 mg BID ONCE SQ 10/21/25 21:00 10/21/25 21:01 Famotidine (Pepcid 20mg Vial) 20 mg BID IV 10/21/25 21:00 10/21/25 12:34 DC Famotidine (Pepcid 20mg Tab) 20 mg BID PO 10/21/25 21:00 11/20/25 20:59 Guaifenesin (RobiTUSSin SUGAR-FREE 100 MG/ 5 ML UDCUP) 200 mg Q4H PRN PO COUGH 10/21/25 12:30 11/20/25 12:29 Guaifenesin/ Dextromethorphan (RobiTUSSin DM 200/20MG 10ML) 10 ml Q4H PRN PO COUGH 10/21/25 12:30 11/20/25 12:29 Insulin Human Lispro (HumaLOG LISpro 100 UNIT/ML 3ML) INSULIN SLIDING SCAL... ACHS SQ 10/21/25 16:30 11/20/25 16:29 Lactulose (Constulose 20gm/ 30ml Udcup) 20 gm BID PRN PO CONSTIPATION 10/21/25 12:30 11/20/25 12:29 Lidocaine HCl/Al Hydroxide/Mg Hydroxide/ Dicyclomine HCl 20ML OR AD MAALOX P... Q6H PRN PO HEARTBURN 10/21/25 12:30 11/20/25 12:29 Metoprolol Tartrate (loprESSOR) 5 mg ONCE STAT IV 10/21/25 10:21 10/21/25 10:22 DC 10/21/25 10:35 Metoprolol Tartrate (loprESSOR) 25 mg BID PO 10/21/25 21:00 11/20/25 20:59 Nitroglycerin (Nitrostat) 0.4 mg PROTOCOL PRN SL CHEST PAIN 10/21/25 12:30 11/20/25 12:29 Ondansetron HCl (zoFRAN 4MG INJ) 4 mg Q6H PRN IV NAUSEA/VOMITING 10/21/25 12:30 11/20/25 12:29 Polyethylene Glycol (MIRalax 3350 17 GM POWD.PACK) 17 gm DAILY PRN PO CONSTIPATION 10/21/25 12:30 11/20/25 12:29 Sodium Chloride 1,000 ml @ 0 mls/hr ONCE ONCE IV 10/21/25 10:30 10/21/25 10:31 DC 10/21/25 10:26 Vital Signs Date Time Temp Pulse Resp B/P (MAP) Pulse Ox O2 Delivery O2 Flow Rate FiO2 10/21/25 12:58 97.9 65 18 116/63 100 Room Air* 0 21 10/21/25 11:46 97.9 66 18 100/54 100 Room Air* 0 21 10/21/25 10:45 69 18 98/56 98 Room Air* 0 21 10/21/25 10:35 156 104/41 10/21/25 10:26 152 20 99/51 100 Room Air* 0 10/21/25 10:04 97.9 154 14 99/51 100 Room Air 0 Medical Decision Making MDM MDM: Differential diagnosis: Rationale: Tests considered and ordered secondary to shared decision making include: labs, ECG and radiology Previous outside records reviewed: Old ER visits. Risk of complication and/or morbidity or mortality of patient management: None Medications-Per medication reconciliation Need for hospitalization: Patient does meet criteria for hospitalization. Need for emergency major/minor surgery: No There are no social concerns with this patient. Prescription drug management Prescriptions will include symptomatic care Patient's prior external medical records from other ER visits were reviewed by me as indicated. Prior testing and results from previous visits were reviewed. Prior tests were taken into account with medical decision making and resource utilization, independent historian/historians were used to obtain complete medical history. I independently interpreted the test that were performed, results were reviewed by me and considered findings on radiology if ordered. Medical management and examination interpretation discussions were had by me with other qualified healthcare professionals as indicated for the patient's care. 70-year-old male with new onset AFib RVR, borderline hypotension on arrival, concern for occult sepsis, IV fluids antibiotics given, patient was given IV Lopressor and converted back into a sinus rhythm admitting for further care and evaluation. Critical Care Note Comment(s) Total critical care time was 33 minutes. Excluding time for procedures. Management of critically ill patient with concern for acute decompensation. Management included interpretation of laboratory values and imaging, hemodynamics, time for consultation with consultants and admitting physician. DX & DISP Disposition: Inpatient Departure Impression: Primary Impression: SIRS (systemic inflammatory response syndrome) Additional Impressions: Atrial fibrillation with RVR, Hypotension Condition: Stable Referrals: CROW LAMBERT DO (PCP) JOSE MANUEL HARO MD Oct 21, 2025 14:28
--- NOTE | 2025-10-21 16:00 | NUR ---
PT WAS GIVEN AN APPLE SAUCE AND APPLE JUICE. PT WAS ADVISED THAT THERE HAS BEEN NO BED ASSIGNMENT AT THIS TIME, WAS ADVISED THAT THERE IS A DELAYED WAIT TIME FOR IN PT BEDS AND HE WILL BE DOWN IN THE ED FOR A WHILE. PT WAS ADVISED THAT HE IS BEING ADMITTED FOR CARDIOLOGY EVALUATION AND THE MD WILL SEE HIM IN HOUSE.
--- NOTE | 2025-10-21 16:53 | NUR ---
DOES NOT HAE MEDICATIONS WITH HIM, DOES NOT RECALL NAMES/DOSAGES OF MEDS
--- NOTE | 2025-10-21 17:00 | NUR ---
PT STATES HE IS TIRED OF WAITING AND WANTS TO KN OW WHEN AN MD IS GOING TO COME AND SEE HIM. PT WAS ADVSIED THAT HE WAS SEEN BY ED MD BUT THE REASON FOR HIS ADMISSION TODAY IS A CARDIOLOGY CONSULT. PT STATES HE HAS BEEN WAITING AND THERE HAS BEEN NO DOCTOR AND HE DOES NOT UNDERSTAND WHY HE IS STILL WIATING IN THE ED. PT WAS AGAIN ADVISED THAT THERE HAS BEEN NO BED ASSIGNMENT AND THAT IF HE IS UNCOFORTABLE, WE CAN GET A HOSPITAL BED FOR HIM.
--- NOTE | 2025-10-21 17:10 | NUR ---
[facility] WAS CALLED FOR HOSPITAL BED.
--- NOTE | 2025-10-21 17:30 | NUR ---
PT REQUESTED TO SPEAK TO ANOTHER NURSE ABOUT HIS SIUTUATION. BLAISE DORAN SPOKE TO PT. PT STATES HE WILL BE STAYING BUT WILL BE CONTACTING CORPORATE DUE TO DELAY IN CARE
--- NOTE | 2025-10-21 17:50 | NUR ---
PT WAS GIVEN HIS DINER TRAY AND MOVED ONTO A HOSPITAL BED.
--- NOTE | 2025-10-21 19:13 | HP ---
[facility] HISTORY & PHYSICAL Date Patient Seen: Oct 21, 2025 Time of Visit: 19:13 Supervising Physician: Dr. Navjot Michelle Primary Care Physician: Dr. Marline Olmstead Outpatient Specialists:Dr. Hoffman (supervisor fruit grading) Inpatient Consults: [ ] PROBLEM LIST: 1. Afib RVR 2. Acute complicated cystitis 3. Sepsis, elevated lactic acid, POA 4. Severe protein calorie malnutrition 5. Electrolyte derangement syndrome:Hypomagnesemia 6. Dehydration CHRONIC PROBLEM LIST: Generalized anxiety disorder Depression Liver cirrhosis HIV Hypertension HPI: Travis Lincoln is a 70-year-old male gentleman, PCP, Dr. Marline Olmstead, health history: Liver cirrhosis, hypertension, HIV, generalized anxiety disorder, depression, AFib, presents to the emergency department not feeling great. Onset per patient was a few days ago progressively worsening. Patient did not want to share any information including onset duration intensity of palpations. Nor did the patient wanted discussed his health history or indicate which medications he is currently taking. This information was done through researching of the chart. Focused assessment in a quick questions were answered by patient. Vital signs temperature 97.7, pulse 60 three, respirations 18 blood pressure 116/64, oxygen saturation 100% on room air, FiO2, 21. Laboratory results: WBC 10.1, hemoglobin 14.1, hematocrit 40.5%, platelets 210, sodium 138, potassium 3.8, BUN 15, creatinine 1.2, GFR 65, random blood glucose 129, and albumin 2.4. Urine UA results: Leukocyte esterase elevated. Chest x-ray one view: Unremarkable. EKG from provider's nerves rhythm atrial fibrillation. Rate accelerated 140+. No ST segment elevation or depression. Patient was assessed seen and examined in ED department [place] 14. Patient was reserve patient did not want to share health information medications currently being used social history or surgical history during the assessment. This information will be gathered from chart review and follow up. At this time the patient during the focused assessment denies chest pain, shortness of breath fever, chills, nauseousness and constipation patient also denies dyspnea in a and chest palpations. PAST MEDICAL HX: see above PAST SURGICAL HX: noncontributory SOCIAL HISTORY: No tobacco, ETOH, or illicit drug use Coded Allergies: No Known Drug Allergies (Unverified Allergy, Unknown, 06/06/19) REVIEW OF SYSTEMS: 12 point ROS reviewed with patient. Pertinent positives mentioned above. Otherwise negative. PHYSICAL EXAM: GENERAL: alert, weak, awake oriented x 3 HEENT: EOMI, Sclera non icteric, moist mucosa NECK: Supple, no JVD, trachea midline LUNGS: Clear breath sounds bilaterally. No wheezes HEART: Regular rate and rhythm. Normal S1 and S2, without murmurs ABD: Abdomen soft, nontender. Bowel sounds present EXT: No clubbing cyanosis or edema NEURO: Alert and oriented to person, follows commands Vital Signs (last 8hr) Date Time Temp Pulse Resp B/P (MAP) Pulse Ox O2 Delivery O2 Flow Rate FiO2 10/21/25 18:13 97.7 68 18 138/75 100 Room Air* 0 21 10/21/25 16:45 97.7 67 18 116/64 100 Room Air* 0 21 10/21/25 15:30 97.7 69 18 120/61 100 Room Air* 0 21 10/21/25 14:30 97.9 65 18 119/66 100 Room Air* 0 21 10/21/25 12:58 97.9 65 18 116/63 100 Room Air* 0 21 10/21/25 11:46 97.9 66 18 100/54 100 Room Air* 0 21 LABS: Hematology Labs: Test 10/21/25 10:22 Range/Units White Blood Count 10.1 4.8-10.8 K/uL Red Blood Count 4.35 L 4.50-6.20 MIL/uL Hemoglobin 14.1 14.0-18.0 g/dL Hematocrit 40.5 L 42-54 % Mean Corpuscular Volume 93.1 79-99 fL Mean Corpuscular Hemoglobin 32.4 27.0-33.0 pg Mean Corpuscular Hemoglobin Concent 34.8 32.0-36.0 g/dL Red Cell Distribution Width 14.9 11.0-15.5 % Platelet Count 210 130-400 K/uL Mean Platelet Volume 10.4 7.5-10.5 fL Immature Granulocyte % (Auto) 0.4 0-1 % Neutrophils (%) (Auto) 62.8 40.0-77.0 % Lymphocytes (%) (Auto) 24.1 21.0-51.0 % Monocytes (%) (Auto) 10.5 3.0-13.0 % Eosinophils (%) (Auto) 1.9 0.0-8.0 % Basophils (%) (Auto) 0.3 0.0-5.0 % Neutrophils # (Auto) 6.4 1.8-7.7 K/uL Lymphocytes # (Auto) 2.4 1.0-4.8 K/uL Monocytes # (Auto) 1.1 H 0.1-1.0 K/uL Eosinophils # (Auto) 0.19 0.00-0.70 K/uL Basophils # (Auto) 0.03 0.00-0.20 K/uL Absolute Immature Granulocyte (auto 0.04 0-1 K/uL Nucleated Red Blood Cells 0.0 0.0-0.19 % Chemistry Labs: Test 10/21/25 16:36 10/21/25 14:03 10/21/25 12:41 10/21/25 10:22 Range/Units Whole Blood Glucose 93 70-110 MG/DL Lactic Acid Level 2.2 0.8-2.5 mmol/L Troponin I High Sensitivity 17 4-75 ng/L Procalcitonin < 0.05 L 0.05-0.5 ng/mL Thyroid Stimulating Hormone (TSH) 2.98 # 0.36-3.74 uIU/mL Sodium Level 138 136-145 mmol/L Potassium Level 3.8 3.5-5.1 mmol/L Chloride Level 106 101-111 mmol/L Carbon Dioxide Level 26 21-32 mmol/L Blood Urea Nitrogen 15 7-18 mg/dL Creatinine 1.2 0.5-1.3 mg/dL Glomerular Filtration Rate Calc 65 >90 mL/min Random Glucose 129 H 70-105 mg/dL Total Calcium 8.8 8.5-10.1 mg/dL Total Bilirubin 1.4 H 0.2-1.0 mg/dL Direct Bilirubin 0.4 H 0.0-0.3 mg/dL Aspartate Amino Transf (AST/SGOT) 56 H 10-37 U/L Alanine Aminotransferase (ALT/SGPT) 46 12-78 U/L Alkaline Phosphatase 84 50-136 U/L Total Creatine Kinase 113 21-232 U/L Total Protein 6.1 6.0-8.3 g/dL Albumin 2.4 L 3.5-5.0 g/dL DIAGNOSTICS / RADIOLOGY RESULTS: PATIENT: TRAVIS LINCOLN MR#: [id number] : 1955 SEX: M AGE: 70 LOCATION: [facility] ORDER [id number] STATUS: REG ER REPORT#: [id number] SERVICE 1014 REASON: gbw ORDERING PHYSICIAN: JOSE MANUEL HARO MD PROCEDURE: CXR1VW - CHEST 1VW EXAM: CR Chest, 1 View. CLINICAL HISTORY: gbw COMPARISON: None provided. FINDINGS: LUNGS: The lungs show no infiltrate or other acute finding. Bibasilar atelectasis. PLEURAL SPACES: No evidence of pleural effusion or pneumothorax. MEDIASTINUM: Cardiac size and mediastinal contours within normal limits. BONES: No acute osseous abnormality. IMPRESSION: No acute cardiopulmonary pathology is evident. /[place] DICTATED BY: JESSY MOREL Jr., MD DATE: 10/21/251218 ELECTRONICALLY SIGNED BY: JESSY MOREL Jr., MD DATE: 10/21/251218 PLAN Telemetry monitoring PCCU On weight based anticoagulation Metoprolol 50 mg p.o. Complicated cystitis ceftriaxone 2 g IV Q 24 hours NS 50 mL an hour after fluid boluses address dehydration GI prophylaxis with Protonix 40 mg p.o. daily We will research and complete later med reconciliation Echocardiogram awaiting results Further orders per course of stay A.m. labs ordered. The NEURO: Minimize central acting medications as possible. Maintain fall precautions, adequate lighting during the day PULMONARY: Supplemental 02 as needed. Maintain aspiration precautions at all times CARDIOVASCULAR: Follow hemodynamics. Vital signs per facility protocol GI & NUTRITION: Continue with nutritional support. Continue stool softeners and laxatives as needed. KIDNEYS & ELECTROLYTES: Strict monitoring of intake, output and overall fluid balance. Avoid nephrotoxic medications to the extent possible. Medications to be dosed according to renal function. Monitor electrolytes and replace as needed ENDOCRINE: Maintain blood glucose between 100-180 at all times. Hypoglycemia protocol in place INFECTIOUS DISEASE: Trend temperature, WBC and procalcitonin level Follow cultures, deescalate antibiotics as soon as possible. Panculture if new onset fever ONCOLOGY/HEMATOLOGY/COAGULATION: Monitor for s/s of bleeding Monitor hemoglobin, coagulation studies as needed SKIN: Pressure ulcer prevention per facility protocol Specialty mattress ORTHO/REHAB: Continue PT/OT Prophylaxis: Continue GI and DVT prophylaxis Code Status: Full Resuscitation Disposition: TBD Other: Total patient care time exceeds 35 minutes excluding all procedures. LONNIE DANIELS AGACNP Oct 21, 2025 19:13
[2025-10-21] MEDS: FAMOTIDINE 20MG TAB PO SCH (20:30)
[2025-10-21] MEDS: ENOXAPARIN SODIUM 80 MG/0.8 ML SQ ONE (20:32)
[2025-10-21] MEDS ORDERED: FAMOTIDINE 20MG VIAL IV SCH (21:00)
[2025-10-22 00:13] VITALS: BP 134/67; PULSE 58; RESP 15; TEMP 97.9
[2025-10-22 00:31] VITALS: O2SAT 97
[2025-10-22 04:00] VITALS: BP 126/70; PULSE 50; RESP 16; TEMP 97.7
[2025-10-22 04:15] LABS: NUCLEATED RED BLOOD CELLS 0.0 % (0.0-0.19); PLATELET COUNT (AUTO) 137.0 K/uL (130-400); RED BLOOD CELL COUNT(AUTO) 3.3 MIL/uL (4.50-6.20); RED CELL DISTRIBUTION WIDTH 14.9 % (11.0-15.5); WHITE BLOOD COUNT (AUTO) 5.4 K/uL (4.8-10.8)
[2025-10-22 04:41] LABS: ASPARTATE AMINOTRANSFERASE 39.0 U/L (10-37); CREATININE 0.9 mg/dL (0.5-1.3); GLOMERULAR FILTR. RATE CALC 91.0 mL/min (>90); GLUCOSE,RANDOM 83.0 mg/dL (70-105); SODIUM SERUM 143.0 mmol/L (136-145); TOTAL PROTEIN, SERUM 4.6 g/dL (6.0-8.3); UREA NITROGEN, BLOOD 16.0 mg/dL (7-18)
[2025-10-22 05:04] VITALS: BP 126/70; PULSE 50; RESP 16; TEMP 97.7
[2025-10-22 07:00] VITALS: BP 119/78; PULSE 51; RESP 22; TEMP 98.1
--- NOTE | 2025-10-22 08:04 | NUR ---
Patient verbalized frustration and stated desire to leave prior to medical evaluation. Despite education and encouragement to remain for evaluation, patient continued to refuse care and stated intent to leave. Primary team made aware. Patient signed AMA formed at this time. 20G PIV removed from right arm. Patient then walked out of unit with no acute events.
--- NOTE | 2025-10-22 13:21 | DS ---
[facility] DISCHARGE SUMMARY Date Patient Seen: Oct 22, 2025 Time of Visit: 13:20 Supervising Physician: Dr Santino Diggs Primary Care Physician: Dr. Marline Olmstead Outpatient Specialists:Dr. Hoffman (artificial teeth inspector) Inpatient Consults: [ ] PROBLEM LIST: 1. Afib RVR 2. Acute complicated cystitis 3. Sepsis, elevated lactic acid, POA 4. Severe protein calorie malnutrition 5. Electrolyte derangement syndrome:Hypomagnesemia 6. Dehydration CHRONIC PROBLEM LIST: Generalized anxiety disorder Depression Liver cirrhosis HIV Hypertension HOSPITAL COURSE: HPI Travis Moran is a 70-year-old male gentleman, PCP, Dr. Marline Olmstead, health history: Liver cirrhosis, hypertension, HIV, generalized anxiety disorder, depression, AFib, presents to the emergency department not feeling g reat. Onset per patient was a few days ago progressively worsening. Patient did not want to share any information including onset duration intensity of palpations. Nor did the patient wanted discussed his health history or indicate which medications he is currently taking. This information was done through researching of the chart. Focused assessment in a quick questions were answered by patient. Vital signs temperature 97.7, pulse 60 three, respirations 18 blood pressure 116/64, oxygen saturation 100% on room air, FiO2, 21. Laboratory results: WBC 10.1, hemoglobin 14.1, hematocrit 40.5%, platelets 210, sodium 138, potassium 3.8, BUN 15, creatinine 1.2, GFR 65, random blood glucose 129, and albumin 2.4. Urine UA results: Leukocyte esterase elevated. Chest x-ray one view: Unremarkable. EKG from provider's nerves rhythm atrial fibrillation. Rate accelerated 140+. No ST segment elevation or depression. Patient was assessed seen and examined in ED department [place] [facility]. Patient was reserve patient did not want to share health information medications currently being used social history or surgical history during the assessment. This information will be gathered from chart review and follow up. At this time the patient during the focused assessment denies chest pain, shortness of breath fever, chills, nauseousness and constipation patient also denies dyspnea in a and chest palpations. The patient was treated for the following problems: ACTIVE PROBLEM LIST FOR THE HOSPITALIZATION: CHRONIC PROBLEMS: continue previous management per PCP unless otherwise indicated COMPENSATION ASSOCIATE FINDINGS/RECOMMENDATIONS: [ ] PROCEDURES: as mentioned above DISCHARGE MEDICATIONS: Patient left AMA, prior to shift, patient was not seen or evaluated. AMA documented in patient's chart Signed by patient. PHYSICAL EXAM: Patient left AMA, not seen FOLLOW-UP: PAOLA CARDENAS PAC Oct 22, 2025 13:21
== END 2025-10-22 08:30 | disposition left against medical advice (07) ==
LOC: EDH 10:03 → EDHIP 12:30 → 2CH 10-22 00:53
PROVIDERS: ADMIT Internal Medicine Critical Care Medicine; ATTEND Internal Medicine Critical Care Medicine
DX: A41.9 Sepsis, unspecified organism (principal); I48.91 Unspecified atrial fibrillation; N30.00 Acute cystitis without hematuria; E43 Unspecified severe protein-calorie malnutrition; E83.42 Hypomagnesemia; E86.0 Dehydration; F41.1 Generalized anxiety disorder; K74.60 Unspecified cirrhosis of liver; I10 Essential (primary) hypertension; F10.20 Alcohol dependence, uncomplicated; Z79.899 Other long term (current) drug therapy; Z98.890 Other specified postprocedural states
CPT/HCPCS: 96376; 96372; 96375; 84443; 82550; 80076; 84484 ×2; 80048; 85025; 87040 ×2; 87086; 87186; 82948 ×2; 83605 ×3; 87536; 81001; 36415 ×2; 71045; 99291; 93005 ×2; 84145; 96365; 83735; 80053; 85027; G0378 ×20; J3490; J0696 ×2; J1650